=== PATIENT | female | born 1970 | race Caucasian/White ===

== ENCOUNTER 2022-12-12 16:39 | Emergency (ER) | payer BC, SELFPAY ==
[2022-12-12] VITALS (12 sets, daily range): BP systolic 122–161; BP diastolic 77–95; PULSE 55–85; RESP 18–20; TEMP 36.4–36.8; O2SAT 97–100; BMI 39.1
--- NOTE | 2022-12-12 17:00 | EXP.UTC ---
Discharge Plan Disposition Patient Disposition: Home, Self-Care Prescriptions Prescriptions: No Action No Known Home Medications Referrals Follow up/Referrals: Radha Gutierrez [Primary Care Provider] - See instructions Tameka Merritt DO [Staff Physician] - See instructions Germaine Wick MD [Staff Physician] - See instructions Clinical Impressions Clinical Impression: Back pain, Ovarian cyst Instructions Patient Instructions: DI for Ovarian Cyst Discharge ED Provider: Mario (ED),Ajay Kaur [facility] [place] <Star Cleveland APRN - Last Filed: 12/13/22 18:14> General Chief complaint: Abdominal Pain Stated complaint: back pain Time Seen by Provider: 12/12/22 17:00 Related Data Home Medications Medication Instructions Recorded Confirmed No Known Home Medications 12/13/22 12/13/22 Allergies Allergy/AdvReac Type Severity Reaction Status Date / Time No Known Allergies Allergy Verified 12/12/22 17:04 <Zac Saxena MD - Last Filed: 12/12/22 19:15> History of Present Illness Provider Complaint: 52-year-old female presents with right sided lower back pain she went to the urgent care center and was sent over to the emergency medicine side. For concern for appendicitis. She is mildly tender in the right lower back and the right flank area. [facility] <Star Cleveland APRN - Last Filed: 12/13/22 18:14> [facility] Disclaimer: The information contained in this section may have been updated after the patient was seen, as this information can be updated by other users. Social History (Updated 12/12/22 @ 23:46 by Ajay Martin (ED)MD) Smoking Status: Never smoker alcohol intake: never current occupational status: employed Travel in the last 8 weeks: None <Zac Saxena MD - Last Filed: 12/12/22 19:15> ROS Obtained: Yes All systems reviewed & no additional complaints except as documented Constitutional Constitutional: Denies fatigue Eyes Eyes: Denies dry eyes ENT Ears, Nose, Mouth, and Throat: Denies dizziness Cardiovascular Cardiovascular: Denies leg edema Respiratory Respiratory: Denies cough Gastrointestinal Gastrointestingal: Denies diarrhea Genitourinary Female Genitourinary: Denies dysuria Musculoskeletal Musculoskeletal: Denies back pain Integumentary/Breasts Skin/Breast: Denies furuncle Neurologic Neurologic: Denies dizziness Endocrine Endocrine: Denies fatigue Hematologic/Lymphatic Henatologic/Lymphatic: Denies easy bleeding Allergic/Immunologic Allergic/Immunologic: Denies urticaria <Zac Saxena MD - Last Filed: 12/12/22 19:15> General General appearance: alert Eye Eye exam: Present PERRL and EOMI ENT ENT exam: Present normal exam and normal oropharynx Neck Neck exam: Present normal inspection Chest Chest inspection: Present symmetric chest wall rise Respiratory Respiratory exam: Present normal lung sounds bilaterally; Absent respiratory distress Cardiovascular Cardiovascular exam: Present regular rate and normal rhythm Abdominal Exam Abdominal exam: Present soft; Absent distention, tenderness, guarding, rebound, Ferreira's sign or tenderness at McBurney's Point Back Exam Back exam: Present normal inspection and other (Mild tenderness right lower back) Neurological Exam Neurological exam: Present alert and oriented X3 Psychiatric Psychiatric exam: Present normal affect and normal mood Skin Skin exam: Present warm, dry and intact Lymphatic Lymphatic Findings: no adenopathy Medical Decision Making <Star Cleveland APRN - Last Filed: 12/13/22 18:14> Lab Data Result diagrams: 12/12/22 18:06 12/12/22 18:06 <Zac Saxena MD - Last Filed: 12/12/22 19:15> Medical Records Medical records reviewed: Yes I reviewed the patient's medical records. Cricket Inquiry Pt receiving controlled substance: No Cricket was queried for this patient: No Lab Data Lab results reviewed: Yes I reviewed the patient's lab results. Medical Decision Narrative: 52-year-ol
[2022-12-12 17:35] LABS: Apearance,Urine Clear (Clear); Color,Urine Yellow (Yellow); Glucose,Urine (UA) Negative (Negative); PH,Urine 5.5 (5.0-8.5); Protein,Urine Negative (Negative)
[2022-12-12 17:36] LABS: Bilirubin,Urine Negative (Negative); Blood, Urine Negative (Negative); Ketones,Urine Negative (Negative); UTC Leukocyte Esterase,Urine Negative (Negative); UTC Nitrate,Urine Negative (Negative); Urobilinogen,Urine 0.2 EU/dl (0.2)
--- NOTE | 2022-12-12 17:51 | CT_ITS ---
PROCEDURE INFORMATION: Exam: CT Abdomen And Pelvis With Contrast Exam date and time: 12/12/2022 7:08 PM Age: 52 years old Clinical indication: Abdominal pain; Localized; Right lower quadrant (rlq); Additional info: Rlq pain for 4 days. TECHNIQUE: Imaging protocol: Computed tomography of the abdomen and pelvis with contrast. Radiation optimization: All CT scans at this facility use at least one of these dose optimization techniques: automated exposure control; mA and/or kV adjustment per patient size (includes targeted exams where dose is matched to clinical indication); or iterative reconstruction. Contrast material: ISOVUE; Contrast volume: 75 ml; Contrast route: IV; REPORTING DATA: Count of CT and Cardiac NM exams in prior 12 months: This patient has received 0 known CTs and 0 known cardiac nuclear medicine studies in the 12 months prior to the current study. COMPARISON: No relevant prior studies available. FINDINGS: Heart: Cardiomegaly. Coronary arteries: Coronary artery calcifications. Liver: Normal. No mass. Gallbladder and bile ducts: Normal. No calcified stones. No ductal dilation. Pancreas: Normal. No ductal dilation. Spleen: Normal. No splenomegaly. Adrenal glands: Normal. No mass. Kidneys and ureters: Normal. No hydronephrosis. Stomach and bowel: Unremarkable. No obstruction. No mucosal thickening. Appendix: Unremarkable appendix. Intraperitoneal space: Unremarkable. No free air. No significant fluid collection. Vasculature: Unremarkable. No abdominal aortic aneurysm. Lymph nodes: Unremarkable. No enlarged lymph nodes. Urinary bladder: Unremarkable as visualized. Reproductive: There is a 4.4 x 4.2 cm right adnexal cystic structure that appears multilocular. Bones/joints: Unremarkable. No acute fracture. Soft tissues: Tiny fat containing umbilical hernia. IMPRESSION: 1. There is a 4.4 x 4.2 cm right adnexal cystic structure that appears multilocular. This could be an ovarian cyst or hydrosalpinx. 2. Unremarkable appendix.
[2022-12-12 18:38] LABS: Chloride 104 mmol/L (98-107); Potassium 4.2 mmoL/L (3.5-5.1); Sodium 136 mmol/L (136-145)
[2022-12-12 18:41] LABS: Alanine Aminotransferase 25 U/L (12-78); Albumin Level 3.8 g/dl (3.5-5.0); Albumin/Globulin Ratio 1.2 (1.1-1.8); Alkaline Phosphatase 75 U/L (38-126); Anion Gap 12.2 mEq/L (5-15); Aspartate Amino Transferase 36 U/L (14-36); Bilirubin,Total 0.3 mg/dl (0.2-1.3); Blood Urea Nitrogen 8 mg/dl (7-17); Calcium 8.9 mg/dl (8.4-10.2); Carbon Dioxide 24 mmol/L (22.0-30.0); Creatinine Clearance Estimated 241 mL/min (50-200); Estimated Glomerular Filt Rate 131 ml/min (>60); GFR (African American) 158 ML/MIN (>60); Globulin 3.1 g/dL (1.3-3.2); Glucose 109 mg/dl (74-100); Lipase 50 U/L (23-300); Total Protein,Serum 6.9 g/dl (6.3-8.2)
[2022-12-12 19:02] LABS: Basophils % 0.6 % (0.1-2.0); Eosinophils # 0.2 K/mm3 (0.0-0.4); Eosinophils % 3.8 % (0.1-12.0); Hematocrit 31.3 % (37.0-47.0); Hemoglobin 9.6 g/dL (12.2-16.2); Lymphocytes # 1.3 K/mm3 (0.7-4.5); Lymphocytes % 22.8 % (10-50); Mean Corpuscular HGB Conc 30.7 g/dL (31.8-35.4); Mean Corpuscular Hemoglobin 21.1 pg (27.0-31.2); Mean Corpuscular Volume 68.8 fl (81-99); Monocytes # 0.4 K/mm3 (0.1-1.0); Monocytes % 7.4 % (1.7-9.3); Neutrophils # 3.8 K/mm3 (1.8-7.8); Neutrophils % 65.4 % (37.0-80.0); Platelet Count 295 K/mm3 (142-424); Red Blood Count 4.55 M/mm3 (4.20-5.40); Red Cell Distribution Width 17.5 % (11.5-17.5); White Blood Count 5.8 K/mm3 (4.8-10.8)
--- NOTE | 2022-12-12 19:45 | PC.NURSE ---
Rounded on pt at this time. Pt had no new needs. Updated on POC
--- NOTE | 2022-12-12 22:09 | PC.NURSE ---
Rounded on pt at this time. Updated her on MD's POC and that he would be in shortly to review all results with her. Provided patient with warm blankets, no other needs at this time.
--- NOTE | 2022-12-12 22:17 | PC.NURSE ---
MD at bedside discussing POC
--- NOTE | 2022-12-12 22:27 | PC.NURSE ---
Notified lab of additional labs
--- NOTE | 2022-12-12 22:53 | US_ITS ---
PROCEDURE INFORMATION: Exam: US Duplex Artery or Vein of the Abdominal and/or Reproductive Organs, Limited Ovaries Exam date and time: 12/12/2022 11:05 PM Age: 52 years old Clinical indication: Pelvic pain; Additional info: Low abd pain, abd CT, R/O torsion TECHNIQUE: Imaging protocol: Real-time duplex ultrasound scan of the arterial or venous flow with swartz scale, color Doppler flow and spectral waveform analysis with image documentation. Limited duplex exam focused on the ovaries. Duplex exam was performed to evaluate for torsion and other vascular conditions. COMPARISON: CT ABDOMEN PELVIS W CON 12/12/2022 19:08 FINDINGS: Right ovary/adnexa: Unremarkable right ovarian arterial waveforms. Left ovary/adnexa: Unremarkable left ovarian arterial waveforms. IMPRESSION: No evidence of ovarian torsion. PROCEDURE INFORMATION: Exam: US Pelvis, Transvaginal Exam date and time: 12/12/2022 11:05 PM Age: 52 years old Clinical indication: Pelvic pain; Additional info: Low abd pain, abd CT, R/O torsion TECHNIQUE: Imaging protocol: Real-time transvaginal pelvic ultrasound with image documentation. Transvaginal imaging was used for better evaluation of the endometrium, adnexa, and/or cervix. COMPARISON: CT ABDOMEN PELVIS W CON 12/12/2022 19:08 FINDINGS: Uterus: Lower anterior uterine defect suggest possible prior Caesarian section. There is a tiny cystic focus in the endometrium. The endometrium measures 1.3 cm in thickness, which is within normal limits for a premenopausal woman. Right ovary/adnexa: Redemonstration of multilocular or septated cystic right adnexal lesion. Unremarkable right ovarian arterial waveforms. Left ovary/adnexa: Unremarkable left ovarian arterial waveforms. Intraperitoneal space: No free fluid. IMPRESSION: 1. Redemonstration of multilocular or septated cystic right adnexal lesion. Ovarian cyst versus hydrosalpinx would be most likely. No evidence of torsion. 2. There is a tiny cystic focus in the endometrium. Please exclude clinically. 3. The endometrium measures 1.3 cm in thickness, which is within normal limits for a premenopausal woman. This is abnormal for a postmenopausal patient. Consider follow-up with [facility] if the patient is postmenopausal.
[2022-12-12 23:03] LABS: C-Reactive Protein 13.4 mg/L (0-4)
[2022-12-12 23:11] LABS: Erythrocyte Sedimentation Rate 70 mm/hr (0-20)
[2022-12-12 23:17] LABS: Procalcitonin 0.055 ng/mL (0.0-2.0)
--- NOTE | 2022-12-12 23:37 | PC.NURSE ---
pt back from US
--- NOTE | 2022-12-12 23:53 | PC.NURSE ---
ER at bedside
== END 2022-12-13 | disposition home or self-care (01) ==
LOC: UTC 16:47 → ER 17:37
PROVIDERS: Emergency Medicine; Nurse Practitioner Family; Emergency Provider Emergency Medicine; PCP Internal Medicine
DX: N83.201 Unspecified ovarian cyst, right side (principal); M54.50 Low back pain, unspecified
CPT/HCPCS: 74177; 76830; 80053; 81003; 83690; 84145; 85025; 85651; 86140; 87086; 96361; 96374; 96375; 99284; J0131; J2405; Q9967

== ENCOUNTER → 2022-12-14 10:46 | Outpatient (CLI) | payer BC, SELFPAY ==
[2022-12-14 11:09] LABS: Basophils % 0.6 % (0.1-2.0); Eosinophils # 0.2 K/mm3 (0.0-0.4); Eosinophils % 3.3 % (0.1-12.0); Hematocrit 28.9 % (37.0-47.0); Hemoglobin 8.9 g/dL (12.2-16.2); Lymphocytes # 1.5 K/mm3 (0.7-4.5); Lymphocytes % 22.4 % (10-50); Mean Corpuscular HGB Conc 30.7 g/dL (31.8-35.4); Mean Corpuscular Volume 68.6 fl (81-99); Mean Platelet Volume 8.8 fl (7.4-10.4); Monocytes # 0.5 K/mm3 (0.1-1.0); Monocytes % 7.5 % (1.7-9.3); Neutrophils # 4.3 K/mm3 (1.8-7.8); Neutrophils % 66.2 % (37.0-80.0); Platelet Count 273 K/mm3 (142-424); Red Blood Count 4.21 M/mm3 (4.20-5.40); Red Cell Distribution Width 17.6 % (11.5-17.5); White Blood Count 6.6 K/mm3 (4.8-10.8)
[2022-12-14 11:41] LABS: Iron 26 ug/dL (37-170)
[2022-12-14 11:42] LABS: Alanine Aminotransferase 21 U/L (12-78); Albumin Level 3.6 g/dl (3.5-5.0); Albumin/Globulin Ratio 1.3 (1.1-1.8); Alkaline Phosphatase 80 U/L (38-126); Anion Gap 12.1 mEq/L (5-15); Aspartate Amino Transferase 24 U/L (14-36); Bilirubin,Total 0.2 mg/dl (0.2-1.3); Blood Urea Nitrogen 10 mg/dl (7-17); Calcium 8.7 mg/dl (8.4-10.2); Carbon Dioxide 26 mmol/L (22.0-30.0); Chloride 104 mmol/L (98-107); Estimated Glomerular Filt Rate 106 ml/min (>60); GFR (African American) 128 ML/MIN (>60); Globulin 2.8 g/dL (1.3-3.2); Glucose 110 mg/dl (74-100); Potassium 4.1 mmoL/L (3.5-5.1); Sodium 138 mmol/L (136-145); Total Protein,Serum 6.4 g/dl (6.3-8.2)
[2022-12-14 11:50] LABS: Total Iron Binding Capacity 422 ug/dL (265-497)
[2022-12-14 11:59] LABS: 25-OH Vitamin D, Total < 12.8 ng/mL (30-100)
[2022-12-14 12:15] LABS: Free Thyroxine Index 2.8 ug/dL (5.93-13.13); T4 (Thyroxine) 9.9 ug/dl (5.53-11.0); Triiodothryronine (T3) Uptake 28 % (23.5-40.5)
[2022-12-14 12:18] LABS: Ferritin 4.32 ng/ml (6.24-137)
[2022-12-14 13:33] LABS: Thyroid Stimulating Hormone 1.47 uIU/mL (0.465-4.68)
[2022-12-14 13:52] LABS: Vitamin B12 221 pg/mL (239-931)
== END ==
PROVIDERS: PCP Internal Medicine; Visit Provider Nurse Practitioner Obstetrics & Gynecology
DX: R53.83 Other fatigue (principal); D64.9 Anemia, unspecified; E55.9 Vitamin D deficiency, unspecified
CPT/HCPCS: 36415; 80053; 82306; 82607; 82728; 83540; 83550; 84436; 84443; 84479; 85025

== ENCOUNTER 2022-12-27 09:31 | Outpatient (CLI) | payer BC, SELFPAY ==
[2022-12-27 09:58] VITALS: BP 155/90; PULSE 81; RESP 18; TEMP 36.9; O2SAT 98
[2022-12-27 10:40] VITALS: BP 142/86; PULSE 79; RESP 18; O2SAT 98
== END 2022-12-27 10:40 | disposition home or self-care (01) ==
PROVIDERS: PCP Internal Medicine; Visit Provider Nurse Practitioner Obstetrics & Gynecology
DX: E61.1 Iron deficiency (principal)
CPT/HCPCS: 96365; J1439

== ENCOUNTER → 2023-01-04 09:42 | Outpatient (CLI) | payer BC, SELFPAY ==
--- NOTE | 2023-01-04 09:42 | MM_ITS ---
PROCEDURE INFORMATION: Exam: MG Bilateral Screening 3D Mammography Exam date and time: 01/04/2023 9:58 AM Age: 52 years old Clinical indication: Screening. No family history of breast cancer. TECHNIQUE: Imaging protocol: Bilateral Screening tomosynthesis and 2D mammography including computer-aided detection (CAD) when performed. COMPARISON: 1. MG MAMM SCREENING 2D 3D 12/23/2021 9:21 AM 2. MG MM SCREENING MAMMOGRAM 12/19/2018 3:42 PM 3. MG MM SCREENING MAMMOGRAM 03/09/2016 1:48 PM 4. MG MM SCREENING MAMMOGRAM 02/03/2015 10:33 AM FINDINGS: MAMMOGRAPHY: Breast composition: There are scattered areas of fibroglandular density. Mass: None. Architectural distortion: None. Calcifications: No suspicious calcifications. Asymmetric density: None. Skin thickening: None. Axillary adenopathy: None. IMPRESSION: No mammographic evidence of malignancy. Annual screening is recommended unless otherwise clinically indicated. ASSESSMENT: BI-RADS Category 1: Negative
== END ==
PROVIDERS: PCP Internal Medicine; Visit Provider Nurse Practitioner Obstetrics & Gynecology
DX: Z12.31 Encounter for screening mammogram for malignant neoplasm of breast (principal)
CPT/HCPCS: 77063; 77067

== ENCOUNTER 2023-01-04 10:32 | Outpatient (CLI) | payer BC, SELFPAY ==
[2023-01-04 11:00] VITALS: BP 119/70; PULSE 82; RESP 16; O2SAT 96
[2023-01-04 11:35] VITALS: BP 117/71; PULSE 73; RESP 16
== END 2023-01-04 11:50 | disposition home or self-care (01) ==
LOC: INF 10:32
PROVIDERS: PCP Internal Medicine; Visit Provider Nurse Practitioner Obstetrics & Gynecology
DX: E61.1 Iron deficiency (principal)
CPT/HCPCS: 96365; J1439

== ENCOUNTER → 2023-01-05 11:37 | Outpatient (CLI) | payer BC, SELFPAY ==
--- NOTE | 2023-01-05 11:38 | NM_ITS ---
APPROVED REPORT Exam: Nuclear Stress Test Indication: OBESITY, HTN, FM HX, ASD, SOB, ABN EKG Patient Location: Outpatient Stress Tech: Radha Fraser PR Tech:Carrie SaavedraJEANIE RT(R)(N) Ht: 5 ft 7 in Wt: 255 lbs Bra Size: G HR: 76 bpm BP: 133/87 mmHg BSA: 2.24 m2 Rhythm: NSR TID: 1.15 BMI: 39.9 History: OBESITY, HTN, FM HX, ASD, SOB, ABN EKG Procedure: Patient exercised on Maragrito protocol 5:36 minutes and sec, resting heart rate 76 bpm, resting blood pressure 133/87 mmHg, with exercise maximum heart rate achived was 147 bpm which is 86 % of the maximum predicted heart rate and blood pressure was 190/80 mmHg. Test was stopped due to FATIGUE. Patient has poor exercise capacity, achieved 7.0 METs of workload on treadmill, the blood pressure response to exercise was normal. Cardiac Stress and Resting SPECT Images: Cardiac Stress and Resting SPECT images were obtained using technetium 99m Myoview 32.1 mCi stress and 10.40 mCi at rest. This is a technically difficult study due to soft tissue overlying the cardiac borders. This may affect the diagnostic interpretation of the study findings. Resting and stress imaging in supine position demonstrat a medium-sized, moderate, fixed perfusion defect in the mid to distal anterior LV wall, as well as a medium-sized, moderate, reversible defect in the mid to distal inferior LV wall. Both of these defects are no longer visualized with prone stress imaging. Findings may be suggestive of possible artifact, but true perfusion defects cannot be entirely ruled out. Gated imaging demonstrates a normal global and regional LV systolic function. LVEF is calculated at 59%. Conclusion: This is a technically difficult study due to soft tissue overlying the cardiac borders. This may affect the diagnostic interpretation of the study findings. Resting and stress imaging in supine position demonstrat a large-sized, moderate, fixed perfusion defect in the basal to mid anterior LV wall, as well as a large-sized, moderate, reversible defect in the mid to distal inferior LV wall. Both of these defects are no longer visualized with prone stress imaging. Findings may be suggestive of possible soft tissue and diaphragmatic artifact, but true perfusion defects cannot be entirely ruled out. Gated imaging demonstrates a normal global and regional LV systolic function. LVEF is calculated at 59%. Electronically signed by : Odessa Cervantes, 01/08/2023 15:11:52
--- NOTE | 2023-01-05 11:38 | CA_ITS ---
APPROVED REPORT Exam: Exercise Treadmill Technologist: Radha Fraser, Ht: 5 ft 7 in Wt: 257 lbs BSA: 2.25 m2 HR: 76 bpm BP: 133/87 mmHg Rhythm: NSR, LOW VOLTAGE QRS Medical History Medical History: HTN Medications: Losartan,,,,, Allergies: No known drug allergies Cardiac Risk Factors: HTN Stress Test Details Test: Maryam HR Resting HR: 85 bpm Max Heart Rate (APMHR): 170 bpm Max HR Achieved: 147 bpm Target HR (85% APMHR): 145 bpm % of APMHR: 86 Recovery HR: 87 bpm HR response to stress: Normal HR response to stress BP Resting BP: 133.0/87 mmHg Max BP: 190/80 mmHg Recovery BP: 150.0/78.0 mmHg BP response to stress: Normal blood pressure response to stress ECG Resting ECG: NSR, LOW VOLTAGE QRS Stress ECG: <[address] depression in lateral leads Arrhythmia: PACs, PVCs Recovery ECG: Return to baseline within 3 minutes of recovery Recovery Arrhythmia: PACs, PVCs Clinical Exercise duration: 05:36 min Highest Stage Achieved: Exercise capacity: 7.0 METs Overall Exercise Capacity for Age: Poor Stress ECG Conclusion PT WALKED 5:36 ON MARYAM PROTOCOL. SHE ACHIEVED A TOTAL OF 7 METS. SHE HAS A POOR EXERCISE CAPACITY COMPARED TO AGE AND SEX MATCHED PEERS. SHE HAS A NORMAL HR AND BP RESPONSE TO EXERCISE. MAX HR: 147 % OF PM: 86% MAX BP: 190/80 METS: 7.0 TEST STOPPED DUE TO: SOA NO CP PT HAD DYSPNEA OCC PAC RARE PVC < [address] DEPRESSION IN LATERAL LEADS CONCLUSION: POOR EXERCISE CAPACITY POSSIBLE ISCHEMIA ON ECG STRESS TEST MYOVIEW IMAGES REPORTED SEPARATELY Test Summary REST . . . . . . . Standing REST . . . . . . . Sitting REST 04:18 0.0 0.0 85 . 133/ 87 . . Stage 1 01:00 10.0 1.7 110 . . . . Stage 1 02:00 10.0 1.7 119 . . . . Stage 1 03:00 10.0 1.7 123 . 190/ 80 . . Stage 2 01:00 12.0 2.5 135 . . . . Stage 2 02:00 12.0 2.5 142 . . . . Stage 2 02:36 12.0 2.5 146 . . . Stop exercise at 05:36 RECOVERY 01:00 0.0 0.0 125 . . . . RECOVERY 02:00 0.0 0.0 93 . . . . RECOVERY 03:00 0.0 0.0 82 . 160/ 79 . . RECOVERY 04:00 0.0 0.0 91 . 170/ 78 . . RECOVERY 05:00 0.0 0.0 79 . 170/ 78 . . RECOVERY 06:00 0.0 0.0 92 . 161/ 63 . . RECOVERY 07:00 0.0 0.0 87 . 150/ 78 . . RECOVERY 07:16 0.0 0.0 93 . 150/ 78 . . Electronically signed by : Odessa Cervantes, 01/06/2023 14:27:11
== END ==
LOC: RAD 11:38
PROVIDERS: PCP Internal Medicine; Visit Provider Nurse Practitioner Family
DX: R06.00 Dyspnea, unspecified (principal); I25.10 Atherosclerotic heart disease of native coronary artery without angina pectoris; I25.84 Coronary atherosclerosis due to calcified coronary lesion; I51.7 Cardiomegaly; R94.31 Abnormal electrocardiogram [ECG] [EKG]; Z87.74 Personal history of (corrected) congenital malformations of heart and circulatory system
CPT/HCPCS: 78452; 93017; 93306; A9502

== ENCOUNTER → 2023-01-18 11:48 | Outpatient (CLI) | payer BC, SELFPAY ==
--- NOTE | 2023-01-18 11:48 | US_ITS ---
PROCEDURE: US TRANSVAGINAL CLINICAL INDICATION: abnormal bleeding COMPARISON: No exams were available for comparison FINDINGS: Transvaginal sonographic images of the pelvis were obtained. UTERUS: 9.9 cm x 6.0 cm x 4.9 cm with a combined endometrial thickness of 7.1mm. The endometrium has an irregular appearance possibly consistent with adenomyosis. LEFT OVARY: 2.8 cmx2.3 cmx1.6cm with a volume of 5.6ml. There is a follicle measuring 1.0 cm x 0.8 cm x 0.7 cm. RIGHT OVARY: 3.3 cmx 3.1 cmx2.3 cm with a volume of 12.2ml. Within the right ovary is a dominant follicle measuring 1.6 cm x 2.0 cm x 2.0 cm. Both ovaries are seen and appear normal. Doppler flow to both ovaries are seen. There is no fluid in the cul-de-sac. IMPRESSION: 1. Bulky anteverted uterus. 2. The endometrium measures 7.1 mm but has an irregular appearance possibly consistent with adenomyosis. 3. Both ovaries appear normal and each has a follicle. 4. No fluid in the cul-de-sac. Dictated by: David Mejia MD 01/18/2023 13:54 David Mejia MD in OV 01/18/2023 13:54
== END ==
PROVIDERS: PCP Internal Medicine; Visit Provider Nurse Practitioner Obstetrics & Gynecology
DX: N93.9 Abnormal uterine and vaginal bleeding, unspecified (principal)
CPT/HCPCS: 76830

== ENCOUNTER → 2023-01-27 12:12 | Outpatient (CLI) | payer BC, SELFPAY ==
[2023-01-27 12:55] LABS: Basophils % 0.4 % (0.1-2.0); Eosinophils # 0.2 K/mm3 (0.0-0.4); Eosinophils % 2.6 % (0.1-12.0); Hematocrit 38.6 % (37.0-47.0); Hemoglobin 12.3 g/dL (12.2-16.2); Lymphocytes # 1.7 K/mm3 (0.7-4.5); Lymphocytes % 19.3 % (10-50); Mean Corpuscular HGB Conc 31.8 g/dL (31.8-35.4); Mean Corpuscular Hemoglobin 25.2 pg (27.0-31.2); Mean Corpuscular Volume 79.3 fl (81-99); Mean Platelet Volume 7.8 fl (7.4-10.4); Monocytes # 0.6 K/mm3 (0.1-1.0); Monocytes % 6.8 % (1.7-9.3); Neutrophils # 6.3 K/mm3 (1.8-7.8); Neutrophils % 70.9 % (37.0-80.0); Platelet Count 256 K/mm3 (142-424); Red Blood Count 4.87 M/mm3 (4.20-5.40); Red Cell Distribution Width 24.2 % (11.5-17.5); White Blood Count 8.9 K/mm3 (4.8-10.8)
[2023-01-27 13:41] LABS: Iron 49 ug/dL (37-170)
[2023-01-27 13:56] LABS: Total Iron Binding Capacity 301 ug/dL (265-497)
[2023-01-27 14:16] LABS: Ferritin 70.3 ng/ml (6.24-137)
[2023-01-27 15:21] LABS: Vitamin B12 756 pg/mL (239-931)
== END ==
PROVIDERS: PCP Internal Medicine; Visit Provider Internal Medicine Medical Oncology
DX: D50.9 Iron deficiency anemia, unspecified (principal)
CPT/HCPCS: 36415; 82607; 82728; 83540; 83550; 85025

== ENCOUNTER 2023-02-01 07:37 | Day surgery (SDC) | payer BC, SELFPAY ==
[2023-02-01] VITALS (11 sets, daily range): BP systolic 117–158; BP diastolic 63–83; PULSE 55–73; RESP 16; O2SAT 94–99; BMI 39.7
--- NOTE | 2023-02-01 07:13 | IR_ITS ---
APPROVED REPORT Patient Location: Outpatient Prototype Technician: JEANIE Melendze RT (R) PROCEDURES Left heart catheterization Left ventriculogram Selective coronary angiogram INDICATION Abnormal Myoview, Angina pectoris Informed consent was obtained prior to the procedure. COMPLICATIONS NONE Estimated Blood Loss: LESS THAN 10 ML TECHNIQUE One percent lidocaine used to anesthetize the right anterior aspect of the wrist. The right radial artery was accessed via the Seldinger technique. A 6 [place] sheath was placed in the right radial artery. 2.5 mg of Verapamil, 800 mcg of nitroglycerin, 1mg Lidocaine and 5000 U Heparin were given through the arterial sheath. The papa catheter was also used to perform left heart catheterization, left ventriculogram and selective coronary angiogram. At the end of the procedure the sheath was removed good hemostasis was achieved using Traclet band, patient was transferred to the postop holding area in stable condition. ANGIOGRAPHIC RESULTS The left main artery Normal The left anterior descending artery Is diffuse 10 to 20% stenoses The circumflex artery Nondominant has diffuse 20 to 30% stenoses The right coronary artery Dominant with diffuse 30 to 40% stenoses The HAYS ventriculogram reveals Preserved at 65% The left ventricular end-diastolic pressure 20 mmHg IMPRESSION Mild to moderate coronary disease as described above Preserved ejection fraction Mildly elevated LVEDP PLAN 1. Risk factor modification 2. Treatment of diastolic dysfunction Electronically signed by : Chris Kahn MD 02/02/2023 13:18:10
[2023-02-01 09:39] LABS: Basophils % 0.5 % (0.1-2.0); Chloride 104 mmol/L (98-107); Eosinophils # 0.3 K/mm3 (0.0-0.4); Eosinophils % 3.2 % (0.1-12.0); Hemoglobin 12.1 g/dL (12.2-16.2); Lymphocytes # 1.7 K/mm3 (0.7-4.5); Lymphocytes % 20.4 % (10-50); Mean Corpuscular HGB Conc 31.9 g/dL (31.8-35.4); Mean Corpuscular Hemoglobin 25.7 pg (27.0-31.2); Mean Corpuscular Volume 80.8 fl (81-99); Mean Platelet Volume 7.8 fl (7.4-10.4); Monocytes # 0.6 K/mm3 (0.1-1.0); Monocytes % 6.9 % (1.7-9.3); Neutrophils # 5.7 K/mm3 (1.8-7.8); Neutrophils % 69.1 % (37.0-80.0); Platelet Count 229 K/mm3 (142-424); Potassium 3.6 mmoL/L (3.5-5.1); Red Cell Distribution Width 24.1 % (11.5-17.5); Sodium 137 mmol/L (136-145); White Blood Count 8.3 K/mm3 (4.8-10.8)
[2023-02-01 09:42] LABS: Anion Gap 12.6 mEq/L (5-15); Blood Urea Nitrogen 12 mg/dl (7-17); Calcium 10.9 mg/dl (8.4-10.2); Carbon Dioxide 24 mmol/L (22.0-30.0); Creatinine Clearance Estimated 204 mL/min (50-200); Estimated Glomerular Filt Rate 106 ml/min (>60); GFR (African American) 128 ML/MIN (>60); Glucose 102 mg/dl (74-100)
== END 2023-02-01 13:26 | disposition home or self-care (01) ==
PROVIDERS: PCP Internal Medicine; Visit Provider Internal Medicine
DX: I25.118 Atherosclerotic heart disease of native coronary artery with other forms of angina pectoris (principal); I25.84 Coronary atherosclerosis due to calcified coronary lesion; I51.7 Cardiomegaly; R94.31 Abnormal electrocardiogram [ECG] [EKG]; R94.39 Abnormal result of other cardiovascular function study; Z87.74 Personal history of (corrected) congenital malformations of heart and circulatory system
CPT/HCPCS: 80048; 85025; 93458; 99152; C1725; C1769; J1644; Q9967

== ENCOUNTER → 2023-02-07 09:06 | Outpatient (CLI) | payer BC, SELFPAY ==
--- NOTE | 2023-02-07 09:10 | US_ITS ---
FINAL REPORT CLINICAL HISTORY: epigastric pain COMPARISON: None FINDINGS: Sonographic images of the right upper quadrant were obtained. The pancreas is partially obscured. There is fatty infiltration of the liver. Sludge is noted in the gallbladder. There is a comet tail artifact in the gallbladder which may be related to adenomyomatosis. There is no evidence of biliary ductal dilatation.The common duct measures 3 mm. Limited images of the right kidney are unremarkable. IMPRESSION: Small amount of sludge and adenomyomatosis of the gallbladder wall. Reviewed, Interpreted and Dictated by Clay Gupta MD Transcribed by Sirena Esparza Authenticated and [facility][1]
== END ==
PROVIDERS: PCP Internal Medicine; Visit Provider Nurse Practitioner
DX: R10.13 Epigastric pain (principal)
CPT/HCPCS: 76705

== ENCOUNTER → 2023-02-16 14:35 | Outpatient (CLI) | payer BC, SELFPAY ==
[2023-02-16 16:20] LABS: Chloride 101 mmol/L (98-107); Potassium 4.2 mmoL/L (3.5-5.1); Sodium 138 mmol/L (136-145)
[2023-02-16 16:23] LABS: Blood Urea Nitrogen 15 mg/dl (7-17); Estimated Glomerular Filt Rate 76 ml/min (>60); GFR (African American) 92 ML/MIN (>60)
[2023-02-16 16:24] LABS: Anion Gap 11.2 mEq/L (5-15); Calcium 10.5 mg/dl (8.4-10.2); Carbon Dioxide 30 mmol/L (22.0-30.0); Glucose 123 mg/dl (74-100)
--- NOTE | 2023-02-27 13:55 | PC.NURSE ---
Have left messages about a HST but no return calls.
== END ==
PROVIDERS: PCP Internal Medicine; Visit Provider Nurse Practitioner Family
DX: R06.00 Dyspnea, unspecified (principal); I25.10 Atherosclerotic heart disease of native coronary artery without angina pectoris; I50.30 Unspecified diastolic (congestive) heart failure; I51.7 Cardiomegaly
CPT/HCPCS: 36415; 80048

== ENCOUNTER 2023-02-23 14:36 | Outpatient (CLI) | payer BC, SELFPAY ==
[2023-02-23 14:46] VITALS: BP 127/75; PULSE 71; RESP 18; TEMP 36.7; O2SAT 98
== END 2023-02-23 15:05 | disposition home or self-care (01) ==
LOC: INF 14:37
PROVIDERS: Visit Provider Internal Medicine Medical Oncology
DX: D50.9 Iron deficiency anemia, unspecified (principal)
CPT/HCPCS: 96372

== ENCOUNTER → 2023-03-02 13:06 | Outpatient (CLI) | payer BC, SELFPAY ==
[2023-03-02 13:56] VITALS: BMI 40.8
== END ==
PROVIDERS: PCP Internal Medicine; Visit Provider Nurse Practitioner
DX: K76.0 Fatty (change of) liver, not elsewhere classified (principal)
CPT/HCPCS: 97802

== ENCOUNTER 2023-03-20 11:14 | Outpatient (CLI) | payer BC, SELFPAY ==
[2023-03-20 11:28] VITALS: BP 145/78; PULSE 72; RESP 16; TEMP 36.8; O2SAT 98
== END 2023-03-20 11:35 | disposition home or self-care (01) ==
LOC: INF 11:16
PROVIDERS: PCP Internal Medicine; Visit Provider Internal Medicine Medical Oncology
DX: D50.8 Other iron deficiency anemias (principal); E53.8 Deficiency of other specified B group vitamins
CPT/HCPCS: 96372

== ENCOUNTER → 2023-04-07 08:12 | Outpatient (CLI) | payer BC, SELFPAY | PROVIDERS: PCP Internal Medicine; Visit Provider Nurse Practitioner Family | DX: R06.00 Dyspnea, unspecified (principal); R40.0 Somnolence; R53.83 Other fatigue; I25.10 Atherosclerotic heart disease of native coronary artery without angina pectoris; I50.30 Unspecified diastolic (congestive) heart failure; I51.7 Cardiomegaly; G47.30 Sleep apnea, unspecified | CPT/HCPCS: G0399 ==

== ENCOUNTER 2023-04-17 11:49 | Outpatient (CLI) | payer BC, SELFPAY ==
[2023-04-17 12:00] VITALS: BP 129/68; PULSE 74; RESP 18; TEMP 36.7; O2SAT 97
== END 2023-04-17 12:14 | disposition home or self-care (01) ==
LOC: INF 11:50
PROVIDERS: PCP Nurse Practitioner Obstetrics & Gynecology; Visit Provider Internal Medicine Medical Oncology
DX: E53.8 Deficiency of other specified B group vitamins (principal)
CPT/HCPCS: 96372

== ENCOUNTER → 2023-04-19 09:36 | Outpatient (CLI) | payer BC, SELFPAY ==
[2023-04-19 11:04] LABS: Anion Gap 11.1 mEq/L (5-15); Blood Urea Nitrogen 8 mg/dl (7-17); Calcium 10.2 mg/dl (8.4-10.2); Carbon Dioxide 26 mmol/L (22.0-30.0); Chloride 104 mmol/L (98-107); Estimated Glomerular Filt Rate 89 ml/min (>60); GFR (African American) 107 ML/MIN (>60); Glucose 110 mg/dl (74-100); Potassium 4.1 mmoL/L (3.5-5.1); Sodium 137 mmol/L (136-145)
== END ==
PROVIDERS: PCP Internal Medicine; Visit Provider Nurse Practitioner
DX: I50.30 Unspecified diastolic (congestive) heart failure (principal)
CPT/HCPCS: 36415; 80048

== ENCOUNTER 2023-05-25 11:26 | Day surgery (SDC) | payer BC, SELFPAY ==
[2023-04-21 13:16] VITALS: BMI 40.7
[2023-05-25 11:41] VITALS: BP 127/77; PULSE 69; RESP 18; TEMP 36.3; O2SAT 96
--- NOTE | 2023-05-25 11:57 | P.PNANES_ITS ---
[facility] Disclaimer: The information contained in this section may have been updated after the patient was seen, as this information can be updated by other users. Medical History Abnormal electrocardiogram [ECG] [EKG] ASD (atrial septal defect) Cardiomegaly Coronary artery calcification Coronary artery calcification seen on CAT scan Coronary artery disease Diastolic heart failure Dyspnea Fatigue High blood pressure Hyperlipidemia Surgical History H/O congenital atrial septal defect (ASD) repair H/O heart surgery History of ankle surgery History of delivery x2 Family History Mother Cancer uterine Father Cancer prostate, stomach Diabetes Social History Smoking Status: Never smoker alcohol intake: never substance use type: denies use current occupational status: employed Travel in the last 8 weeks: None [facility] Anesthesia Checklist Structural Data Admitted From: Home Planned Operative Procedure/s: egd Consent for Planned Operative Procedure(s) Verified: Yes NPO Status Verified Time NPO: 00:00 Airway Assessment Mallampati Score:: Class II C-Spine Mobility Assessed: Yes TMJ Mobility Assessed: Yes Dentition: Good Dentition Neurological Assessment Level of Consciousness: Awake, Alert and Appropriate Anesthesia Plan Anesthesia Risk discussed: Yes Anesthesia Plan: Verified ASA Class: II Anesthesia Type: MAC
[2023-05-25 12:14] LABS: HCG Qualitative, Serum Negative (Negative)
--- NOTE | 2023-05-25 12:29 | HMH.SCOPE ---
Procedure: Date: 05/25/23 Patient Date of :: 1970 Procedure Performed:: EGD & biopsies Indications:: Abdominal pain Performing Provider:: Mario Alberto Foley MD Referring Provider:: Saundra Foley APRN Sedation:: Propofol Procedure:: The gastroscope was gently passed through the incisoral orifice into the oral cavity and under direct visualization the esophagus was intubated. The endoscope was passed down the esophagus, through the stomach, and into the duodenum. Color, texture, mucosa, and anatomy of the esophagus, stomach, and duodenum were carefully examined with the scope. Findings:: Oropharynx: normal Esophagus: normal EG Junction: intact at 40 cm Cardia: normal Fundus: normal Body: normal, random biopsies obtained Antrum: normal Duodenal bulb: normal Duodenum (second and third portion): normal, villi clearly visible, biopsies obtained Impression: Normal EGD, biopsies obtained for evaluation of celiac disease and h.pylori Symptoms suggestive of abdominal migraine/IBS Specimens:: Gastric and small bowel Recommendations:: Symptomatic therapy as indicated by referring provider Complications:: None Estimated blood obtained (mL): 0 Colonoscopy Component Colonoscopy Component Was a colonoscopy performed during today's procedure?: No
[2023-05-25 12:30] VITALS: BP 138/83; PULSE 90; RESP 18; TEMP 36.2; O2SAT 99
[2023-05-25 12:40] VITALS: BP 133/83; PULSE 75; RESP 18; O2SAT 95
[2023-05-25 12:50] VITALS: BP 121/61; PULSE 71; RESP 18; O2SAT 96
[2023-05-25 13:12] VITALS: BP 118/60; PULSE 69; RESP 18; O2SAT 96
== END 2023-05-25 13:19 | disposition home or self-care (01) ==
PROVIDERS: PCP Internal Medicine; Visit Provider Internal Medicine Gastroenterology
PROC: 0DJ08ZZ Inspection of Upper Intestinal Tract, Via Natural or Artificial Opening Endoscopic (ICD-10-PCS; CPT 43235; principal; 2023-05-25 12:00)
DX: K29.50 Unspecified chronic gastritis without bleeding (principal); B96.81 Helicobacter pylori [H. pylori] as the cause of diseases classified elsewhere
CPT/HCPCS: 43239; 84703

== ENCOUNTER → 2023-06-01 14:15 | Outpatient (CLI) | payer BC, SELFPAY ==
[2023-06-01 15:06] LABS: Basophils % 0.5 % (0.1-2.0); Eosinophils # 0.2 K/mm3 (0.0-0.4); Eosinophils % 2.9 % (0.1-12.0); Hematocrit 39.2 % (37.0-47.0); Hemoglobin 13.2 g/dL (12.2-16.2); Lymphocytes # 1.7 K/mm3 (0.7-4.5); Lymphocytes % 20.9 % (10-50); Mean Corpuscular HGB Conc 33.5 g/dL (31.8-35.4); Mean Corpuscular Hemoglobin 30.2 pg (27.0-31.2); Mean Platelet Volume 8.6 fl (7.4-10.4); Monocytes # 0.5 K/mm3 (0.1-1.0); Monocytes % 6.9 % (1.7-9.3); Neutrophils # 5.4 K/mm3 (1.8-7.8); Neutrophils % 68.9 % (37.0-80.0); Platelet Count 204 K/mm3 (142-424); Red Blood Count 4.36 M/mm3 (4.20-5.40); Red Cell Distribution Width 14.5 % (11.5-17.5); White Blood Count 7.9 K/mm3 (4.8-10.8)
[2023-06-01 15:30] LABS: Iron 55 ug/dL (37-170)
[2023-06-01 15:55] LABS: Total Iron Binding Capacity 375 ug/dL (265-497)
[2023-06-01 16:16] LABS: Ferritin 18.1 ng/ml (6.24-137)
[2023-06-01 17:46] LABS: Vitamin B12 506 pg/mL (239-931)
[2023-06-01 17:50] LABS: Folate 7.97 ng/mL
== END ==
PROVIDERS: PCP Internal Medicine; Visit Provider Internal Medicine Medical Oncology
DX: D50.9 Iron deficiency anemia, unspecified (principal)
CPT/HCPCS: 36415; 82607; 82728; 82746; 83540; 83550; 85025

== ENCOUNTER 2023-06-08 12:00 | Day surgery (SDC) | payer BC, SELFPAY ==
[2023-06-08] VITALS (7 sets, daily range): BP systolic 109–139; BP diastolic 58–92; PULSE 60–84; RESP 16–18; TEMP 36.1–36.2; O2SAT 95–100; BMI 40.7
[2023-06-08] MEDS: LACTATED RINGERS 1000ML 1,000 ML 100 ML IV (12:12)
--- NOTE | 2023-06-08 12:36 | EXP.ANES.CKL ---
[facility] Disclaimer: The information contained in this section may have been updated after the patient was seen, as this information can be updated by other users. Medical History Abnormal electrocardiogram [ECG] [EKG] ASD (atrial septal defect) Cardiomegaly Coronary artery calcification Coronary artery calcification seen on CAT scan Coronary artery disease Diastolic heart failure Dyspnea Fatigue High blood pressure Hyperlipidemia Surgical History H/O congenital atrial septal defect (ASD) repair H/O heart surgery History of ankle surgery History of delivery x2 Family History Mother Cancer uterine Father Cancer prostate, stomach Diabetes Social History Smoking Status: Never smoker alcohol intake: never substance use type: denies use current occupational status: employed Travel in the last 8 weeks: None caffeine: Yes [facility] Anesthesia Checklist Patient Identification Patient Identification: Arm Band, Family and Verbal (Name & ) Structural Data Admitted From: Home Planned Operative Procedure/s: Colonoscopy Consent for Planned Operative Procedure(s) Verified: Yes Verified Documents: Surgical Consent and History and Physical NPO Status Verified Time NPO: 08:00 Chart Verification Results Verified: CBC, BMP, ECG and HCG Additional verifications Patient : No Anesthesia Reactions: Yes (PONV) Cardiovascular Assessment Heart Sounds: S1 & S2 Pulse Rhythm: Irregular Peripheral Edema: No Airway Assessment Mallampati Score:: Class II C-Spine Mobility Assessed: Yes (FROM) TMJ Mobility Assessed: Yes Dentition: Good Dentition (Nothing loose per pt.) Neurological Assessment Level of Consciousness: Awake, Alert, Appropriate and Follows Commands Hx Seizures: No Numbness or tingling in extremities: No Anesthesia Plan Anesthesia Risk discussed: Yes Anesthesia Plan: Verified ASA Class: III Anesthesia Type: MAC
[2023-06-08 12:41] LABS: HCG Qualitative, Serum Negative (Negative)
--- NOTE | 2023-06-08 13:09 | HMH.SCOPE ---
Procedure: Date: 06/08/23 Patient Date of :: 1970 Procedure Performed:: Colonoscopy with polypectomy Indications:: Chronic Anemia Performing Provider:: Mario Alberto Foley MD Referring Provider:: Ajay Lindo MD Sedation:: Propofol Procedure:: After placing the patient in the left lateral decubitus position, the colonoscopy was gently inserted into the rectum and under direct visualization advanced to the cecum which was identified by transillumination in the right lower quadrant, identification of the ileocecal valve, appendiceal orifice, and cecal strap. Color, texture, mucosa, and anatomy of the colon were carefully examined with the scope. Findings:: Anal canal: normal Rectum: normal Sigmoid colon: normal without polyps or inflammatory changes Descending colon: 075 hyperplastic type polyp identified and removed with cold snare. Splenic flexure: normal Transverse colon: normal without polyps or inflammatory changes Hepatic flexure: normal Ascending colon: normal without polyps or inflammatory changes Cecum: normal Terminal ileum: not visualized Impression: Benign Polyp, descending colon Specimens:: Polyp Recommendations:: Follow up examination in about FIVE years or so, sooner if clinically indicated. Complications:: None Estimated blood obtained (mL): 0 Colonoscopy Component Colonoscopy Component Was a colonoscopy performed during today's procedure?: Yes Recommended follow up colonoscopy of at least 10 years?: No If no, follow up colonoscopy recommended in ___ years?: Five Reason for not recommending >/= 10 yr follow-up interval?: Polyp
--- NOTE | 2023-06-08 13:19 | EXP.ANES.I ---
[facility] Anesthesia Record Part I Anesthesia Record I Intake, IV Amount: 400 Hydration: Adequate Estimated blood loss (mL): 1 Urine output (mL): 0 Blood Products used (#): none Blood Pressure: 109/65 SaO2: 96 Pulse Rate: 76 Airway Patency: Patent Respiratory Rate: 16 Temperature: 97.1 F Patient is:: Awake, Drowsy and Stable Stable to PACU at:: 13:15
== END 2023-06-08 13:45 | disposition home or self-care (01) ==
PROVIDERS: PCP Internal Medicine; Visit Provider Internal Medicine Gastroenterology
PROC: 0DJD8ZZ Inspection of Lower Intestinal Tract, Via Natural or Artificial Opening Endoscopic (ICD-10-PCS; CPT 45378; principal; 2023-06-08 13:00)
DX: D64.9 Anemia, unspecified (principal); K63.5 Polyp of colon
CPT/HCPCS: 45385; 84703; J2704

== ENCOUNTER 2023-08-28 10:14 | Outpatient (CLI) | payer BC, SELFPAY ==
[2023-08-30 08:56] LABS: H. pylori Breath Test Negative (Negative)
== END 2023-08-28 23:59 ==
LOC: LAB 10:14
PROVIDERS: PCP Internal Medicine; Visit Provider Nurse Practitioner
DX: A04.8 Other specified bacterial intestinal infections (principal)
CPT/HCPCS: 83013

== ENCOUNTER 2023-09-13 13:44 | Outpatient (CLI) | payer BC, SELFPAY ==
[2023-09-13 14:05] LABS: Basophils # 0.1 K/mm3 (0-0.2); Basophils % 0.7 % (0.1-2.0); Eosinophils # 0.3 K/mm3 (0.0-0.4); Eosinophils % 3.5 % (0.1-12.0); Hematocrit 37.1 % (37.0-47.0); Hemoglobin 11.9 g/dL (12.2-16.2); Lymphocytes # 1.9 K/mm3 (0.7-4.5); Lymphocytes % 23.6 % (10-50); Mean Corpuscular Hemoglobin 28.2 pg (27.0-31.2); Mean Corpuscular Volume 87.9 fl (81-99); Mean Platelet Volume 8.7 fl (7.4-10.4); Monocytes # 0.5 K/mm3 (0.1-1.0); Monocytes % 6.5 % (1.7-9.3); Neutrophils # 5.3 K/mm3 (1.8-7.8); Neutrophils % 65.7 % (37.0-80.0); Platelet Count 252 K/mm3 (142-424); Red Blood Count 4.22 M/mm3 (4.20-5.40); Red Cell Distribution Width 14.5 % (11.5-17.5); White Blood Count 8.1 K/mm3 (4.8-10.8)
[2023-09-13 15:08] LABS: Iron 55 ug/dL (37-170)
[2023-09-13 15:17] LABS: Total Iron Binding Capacity 381 ug/dL (265-497)
== END 2023-09-13 23:59 ==
LOC: LAB 13:45
PROVIDERS: PCP Internal Medicine; Visit Provider Internal Medicine Medical Oncology
DX: D50.9 Iron deficiency anemia, unspecified (principal)
CPT/HCPCS: 36415; 82728; 83540; 83550; 85025

== ENCOUNTER 2023-09-28 09:32 | Outpatient (CLI) | payer BC, SELFPAY ==
[2023-09-28 09:55] VITALS: BP 143/69; PULSE 75; O2SAT 100
[2023-09-28] MEDS: IRON SUCROSE COMPLEX 200 MG in 0.9 % SODIUM CHLORIDE 100 ML 220 MG IV (10:00)
[2023-09-28] MEDS: SODIUM CHLORIDE 0.9% 50ML BAG 50 ML IV (10:00)
[2023-09-28] MEDS: SODIUM CHLORIDE 0.9% 10ML FLUSH SYRINGE 10 ML IV (10:00)
[2023-09-28 10:30] VITALS: BP 133/70; PULSE 68
== END 2023-09-28 10:35 | disposition home or self-care (01) ==
LOC: INF 09:32
PROVIDERS: PCP Internal Medicine; Visit Provider Internal Medicine Medical Oncology
DX: D50.9 Iron deficiency anemia, unspecified (principal)
CPT/HCPCS: 96365; J1756

== ENCOUNTER 2023-10-06 08:09 | Outpatient (CLI) | payer BC, SELFPAY ==
[2023-10-06] MEDS: IRON SUCROSE COMPLEX 200 MG in 0.9 % SODIUM CHLORIDE 100 ML 220 MG IV (08:35)
[2023-10-06] MEDS: SODIUM CHLORIDE 0.9% 50ML BAG 50 ML IV (08:35)
[2023-10-06] MEDS: SODIUM CHLORIDE 0.9% 10ML FLUSH SYRINGE 10 ML IV (08:35)
[2023-10-06 08:38] VITALS: BP 120/63; PULSE 72; RESP 17; O2SAT 97
[2023-10-06 09:10] VITALS: BP 125/61; PULSE 69; RESP 16
== END 2023-10-06 09:30 | disposition home or self-care (01) ==
LOC: INF 08:10
PROVIDERS: PCP Internal Medicine; Visit Provider Internal Medicine Medical Oncology
DX: D50.9 Iron deficiency anemia, unspecified (principal)
CPT/HCPCS: 96365; J1756

== ENCOUNTER 2023-10-12 10:51 | Outpatient (CLI) | payer BC, SELFPAY ==
[2023-10-12 11:10] VITALS: BP 114/65; PULSE 65; RESP 18; TEMP 36.6; O2SAT 99
[2023-10-12] MEDS: IRON SUCROSE COMPLEX 200 MG in 0.9 % SODIUM CHLORIDE 100 ML 220 MG IV (11:10)
[2023-10-12] MEDS: SODIUM CHLORIDE 0.9% 50ML BAG 50 ML IV (11:10)
[2023-10-12 11:50] VITALS: BP 126/71; PULSE 71; RESP 18; O2SAT 99
== END 2023-10-12 11:50 | disposition home or self-care (01) ==
LOC: INF 10:51
PROVIDERS: PCP Internal Medicine; Visit Provider Internal Medicine Medical Oncology
DX: R06.02 Shortness of breath; E61.1 Iron deficiency
CPT/HCPCS: 96365; J1756

== ENCOUNTER 2023-10-20 08:27 | Outpatient (CLI) | payer BC, SELFPAY ==
[2023-10-20] MEDS: SODIUM CHLORIDE 0.9% 50ML BAG 50 ML IV (08:48)
[2023-10-20] MEDS: SODIUM CHLORIDE 0.9% 10ML FLUSH SYRINGE 10 ML IV (08:48)
[2023-10-20 08:49] VITALS: BP 123/73; PULSE 84; RESP 16; TEMP 36.6; O2SAT 98
[2023-10-20] MEDS: IRON SUCROSE COMPLEX 200 MG in 0.9 % SODIUM CHLORIDE 100 ML 220 MG IV (08:49)
[2023-10-20 09:26] VITALS: BP 135/82; PULSE 79; RESP 16; TEMP 36.6; O2SAT 98
== END 2023-10-20 09:35 | disposition home or self-care (01) ==
LOC: INF 08:27
PROVIDERS: PCP Internal Medicine; Visit Provider Internal Medicine Medical Oncology
DX: D50.8 Other iron deficiency anemias (principal)
CPT/HCPCS: 96365; J1756

== ENCOUNTER 2023-10-26 08:45 | Outpatient (CLI) | payer BC, SELFPAY ==
[2023-10-26] MEDS: IRON SUCROSE COMPLEX 200 MG in 0.9 % SODIUM CHLORIDE 100 ML 220 MG IV (09:39)
[2023-10-26 09:43] VITALS: BP 127/76; PULSE 72; RESP 17
[2023-10-26] MEDS: SODIUM CHLORIDE 0.9% 50ML BAG 50 ML IV (10:02)
[2023-10-26 10:12] LABS: Alanine Aminotransferase 24 U/L (12-78); Albumin Level 3.9 g/dl (3.5-5.0); Albumin/Globulin Ratio 1.3 (1.1-1.8); Alkaline Phosphatase 69 U/L (38-126); Anion Gap 11.7 mEq/L (5-15); Aspartate Amino Transferase 25 U/L (14-36); Bilirubin,Total 0.3 mg/dl (0.2-1.3); Blood Urea Nitrogen 8 mg/dl (7-17); Calcium 9.9 mg/dl (8.4-10.2); Carbon Dioxide 24 mmol/L (22.0-30.0); Chloride 103 mmol/L (98-107); Estimated Glomerular Filt Rate 105 ml/min (>60); GFR (African American) 128 ML/MIN (>60); Glucose 129 mg/dl (74-100); Potassium 3.7 mmoL/L (3.5-5.1); Sodium 135 mmol/L (136-145); Total Protein,Serum 6.9 g/dl (6.3-8.2)
[2023-10-26 10:15] VITALS: BP 127/75; PULSE 73; RESP 16
[2023-10-27 08:48] LABS: AFP, Tumor Marker 3.3 ng/mL (0.0-9.2)
[2023-11-04 12:20] LABS: Fibrosis Score 0.03; Fibrosis Stage F0-NO FIBROSIS; NASH Grade N0-NO NASH; NASH Score 0.18; Steatosis Grade S2-S3; Steatosis Score 0.57
[2023-11-04 12:21] LABS: Alpha 2-Macroglobulins, Qn 166; Apolipoprotein A-1 154; Bilirubin, Total 0.1; Haptoglobin 165
[2023-11-04 12:22] LABS: ALT (SGPT) P5P 18; AST (SGOT) P5P 15; Cholesterol, Total 144; GGT 24
[2023-11-04 12:23] LABS: Glucose 130; Triglycerides 157
== END 2023-10-26 10:30 | disposition home or self-care (01) ==
LOC: INF 08:47
PROVIDERS: Nurse Practitioner; PCP Internal Medicine; Visit Provider Internal Medicine Medical Oncology
DX: D50.9 Iron deficiency anemia, unspecified (principal); R06.02 Shortness of breath; K76.0 Fatty (change of) liver, not elsewhere classified; E66.01 Morbid (severe) obesity due to excess calories; Z68.42 Body mass index [BMI] 45.0-49.9, adult
CPT/HCPCS: 80053; 82105; 96365; J1756

== ENCOUNTER 2023-10-30 09:18 | Outpatient (CLI) | payer BC, SELFPAY ==
--- NOTE | 2023-10-30 09:19 | US_ITS ---
FINAL REPORT CLINICAL HISTORY: eval liver NAFLD FINDINGS: Sonographic images of the right upper quadrant were obtained. The pancreas is partially obscured.The liver has an unremarkable appearance.The gallbladder appears normal without evidence of gallstones.There is no evidence of biliary ductal dilatation.The common duct measures 4mm. Limited images of the right kidney are unremarkable. IMPRESSION: Unremarkable right upper quadrant ultrasound. Reviewed, Interpreted and Dictated by Alexandru Schulz III, MD Transcribed by Gita Malin Authenticated and [facility]
== END 2023-10-30 23:59 | disposition home or self-care (01) ==
LOC: RAD 09:19
PROVIDERS: PCP Internal Medicine; Visit Provider Nurse Practitioner
DX: K76.0 Fatty (change of) liver, not elsewhere classified (principal)
CPT/HCPCS: 76705

== ENCOUNTER 2023-10-31 14:02 | Outpatient (CLI) | payer BC, SELFPAY ==
[2023-10-31 14:57] VITALS: BMI 46.0
== END 2023-10-31 23:59 | disposition home or self-care (01) ==
LOC: DIETICIAN 14:08
PROVIDERS: PCP Internal Medicine; Visit Provider Nurse Practitioner
DX: K76.0 Fatty (change of) liver, not elsewhere classified (principal); Z71.3 Dietary counseling and surveillance
CPT/HCPCS: 97802

== ENCOUNTER 2023-11-14 10:03 | Outpatient (CLI) | payer BC, SELFPAY ==
[2023-11-14 10:58] LABS: Basophils # 0.1 K/mm3 (0-0.2); Eosinophils # 0.2 K/mm3 (0.0-0.4); Eosinophils % 3.7 % (0.1-12.0); Hematocrit 39.8 % (37.0-47.0); Lymphocytes # 1.6 K/mm3 (0.7-4.5); Lymphocytes % 26.5 % (10-50); Mean Corpuscular HGB Conc 32.6 g/dL (31.8-35.4); Mean Corpuscular Hemoglobin 28.7 pg (27.0-31.2); Mean Corpuscular Volume 88.2 fl (81-99); Monocytes # 0.5 K/mm3 (0.1-1.0); Monocytes % 7.7 % (1.7-9.3); Neutrophils # 3.8 K/mm3 (1.8-7.8); Neutrophils % 61.1 % (37.0-80.0); Platelet Count 226 K/mm3 (142-424); Red Blood Count 4.51 M/mm3 (4.20-5.40); Red Cell Distribution Width 17.2 % (11.5-17.5); White Blood Count 6.2 K/mm3 (4.8-10.8)
[2023-11-14 11:16] LABS: Iron 84 ug/dL (37-170)
[2023-11-14 11:26] LABS: Total Iron Binding Capacity 279 ug/dL (265-497)
[2023-11-14 11:53] LABS: Ferritin 52.9 ng/ml (11.1-264)
== END 2023-11-14 23:59 | disposition home or self-care (01) ==
LOC: LAB 10:04
PROVIDERS: PCP Internal Medicine; Visit Provider Internal Medicine Medical Oncology
DX: D50.9 Iron deficiency anemia, unspecified (principal); Z79.899 Other long term (current) drug therapy
CPT/HCPCS: 36415; 82728; 83540; 83550; 85025

== ENCOUNTER 2024-04-08 07:44 | Outpatient (CLI) | payer BC, SELFPAY ==
--- NOTE | 2024-04-08 07:45 | US_ITS ---
PROCEDURE INFORMATION: Exam: US Abdomen, Limited; Right Upper Quadrant Exam date and time: 04/08/2024 8:05 AM Age: 53 years old Clinical indication: Abdominal tenderness; Patient HX: Elev liver enzymes; Additional info: Schedule before next nunez appt to eval liver styles TECHNIQUE: Imaging protocol: Real time ultrasound of the abdomen with image documentation. Limited exam focused on the right upper quadrant. Total images: 47 COMPARISON: US ABDOMEN LIMITED 02/07/2023 9:09 AM FINDINGS: Liver: Fatty infiltration of the liver. Gallbladder: Sludge is noted within the gallbladder. Gallbladder wall is thickened measuring up to 8 mm. Biliary ducts: Common bile duct measures 3 mm. Pancreas: Visualized pancreas is unremarkable. Right kidney: Right kidney measures 11.1 cm and is within normal limits. IMPRESSION: 1. Sludge is noted within the gallbladder. 2. Fatty infiltration of the liver. 3. Gallbladder wall is thickened measuring up to 8 mm.
== END 2024-04-08 23:59 | disposition home or self-care (01) ==
PROVIDERS: PCP Internal Medicine; Visit Provider Nurse Practitioner
DX: K76.0 Fatty (change of) liver, not elsewhere classified (principal)
CPT/HCPCS: 76705

== ENCOUNTER 2024-04-25 09:51 | Outpatient (CLI) | payer BC, SELFPAY ==
[2024-04-25 10:47] LABS: Chloride 103 mmol/L (98-107)
[2024-04-25 10:48] LABS: Potassium 3.9 mmoL/L (3.5-5.1); Sodium 137 mmol/L (136-145)
[2024-04-25 10:50] LABS: Blood Urea Nitrogen 12 mg/dl (7-17); Estimated Glomerular Filt Rate 88 ml/min (>60); GFR (African American) 107 ML/MIN (>60)
[2024-04-25 10:51] LABS: Alanine Aminotransferase 22 U/L (12-78); Albumin/Globulin Ratio 1.6 (1.1-1.8); Alkaline Phosphatase 63 U/L (38-126); Anion Gap 9.9 mEq/L (5-15); Aspartate Amino Transferase 22 U/L (14-36); Bilirubin,Total 0.6 mg/dl (0.2-1.3); Calcium 9.3 mg/dl (8.4-10.2); Carbon Dioxide 28 mmol/L (22.0-30.0); Globulin 2.5 g/dL (1.3-3.2); Glucose 126 mg/dl (74-100); Total Protein,Serum 6.5 g/dl (6.3-8.2)
== END 2024-04-25 23:59 | disposition home or self-care (01) ==
LOC: LAB 09:52
PROVIDERS: PCP Internal Medicine; Visit Provider Nurse Practitioner Family
DX: K76.0 Fatty (change of) liver, not elsewhere classified (principal)
CPT/HCPCS: 36415; 80053

== ENCOUNTER 2024-05-03 09:54 | Outpatient (CLI) | payer BC, SELFPAY ==
[2024-05-03 10:47] LABS: Basophils # 0.1 K/mm3 (0-0.2); Basophils % 0.7 % (0.1-2.0); Eosinophils # 0.2 K/mm3 (0.0-0.4); Eosinophils % 2.3 % (0.1-12.0); Hematocrit 36.3 % (37.0-47.0); Hemoglobin 12.4 g/dL (12.2-16.2); Lymphocytes # 2.4 K/mm3 (0.7-4.5); Mean Corpuscular HGB Conc 34.2 g/dL (31.8-35.4); Mean Corpuscular Hemoglobin 29.4 pg (27.0-31.2); Monocytes # 0.7 K/mm3 (0.1-1.0); Monocytes % 6.6 % (1.7-9.3); Neutrophils % 67.4 % (37.0-80.0); Platelet Count 239 K/mm3 (142-424); Red Blood Count 4.22 M/mm3 (4.20-5.40); White Blood Count 10.4 K/mm3 (4.8-10.8)
[2024-05-03 11:03] LABS: Iron 70 ug/dL (37-170)
[2024-05-03 11:13] LABS: Total Iron Binding Capacity 379 ug/dL (265-497)
[2024-05-03 11:40] LABS: Ferritin 10.6 ng/ml (11.1-264)
== END 2024-05-03 23:59 | disposition home or self-care (01) ==
LOC: LAB 10:38
PROVIDERS: PCP Internal Medicine; Visit Provider Internal Medicine Medical Oncology
DX: D50.9 Iron deficiency anemia, unspecified (principal)
CPT/HCPCS: 36415; 82728; 83540; 83550; 85025

== ENCOUNTER 2024-05-09 12:22 | Outpatient (CLI) | payer BC, SELFPAY ==
[2024-05-09] MEDS: SODIUM CHLORIDE 0.9% 10ML FLUSH SYRINGE 10 ML IV (12:47)
[2024-05-09 12:48] VITALS: BP 143/87; PULSE 63; RESP 14; TEMP 36.5; O2SAT 96
[2024-05-09] MEDS: IRON SUCROSE COMPLEX 200 MG in 0.9 % SODIUM CHLORIDE 100 ML 220 MG IV (12:48)
[2024-05-09] MEDS: SODIUM CHLORIDE 0.9% 50ML BAG 50 ML IV (12:48)
[2024-05-09 13:25] VITALS: BP 125/74; PULSE 69; RESP 14; TEMP 36.5; O2SAT 97
== END 2024-05-09 13:30 | disposition home or self-care (01) ==
LOC: INF 12:23
PROVIDERS: PCP Internal Medicine; Visit Provider Internal Medicine Medical Oncology
DX: D50.9 Iron deficiency anemia, unspecified (principal)
CPT/HCPCS: 96365; J1756

== ENCOUNTER 2024-05-15 12:23 | Outpatient (CLI) | payer BC, SELFPAY ==
[2024-05-15 12:34] VITALS: BP 131/91; PULSE 89; RESP 18; TEMP 36.6; O2SAT 99
[2024-05-15] MEDS: IRON SUCROSE COMPLEX 200 MG in 0.9 % SODIUM CHLORIDE 100 ML 220 MG IV (12:43)
[2024-05-15] MEDS: SODIUM CHLORIDE 0.9% 50ML BAG 50 ML IV (12:44)
[2024-05-15] MEDS: SODIUM CHLORIDE 0.9% 10ML FLUSH SYRINGE 10 ML IV (12:49)
[2024-05-15 13:30] VITALS: BP 116/75; PULSE 88; RESP 18; O2SAT 99
== END 2024-05-15 13:35 | disposition home or self-care (01) ==
LOC: INF 12:24
PROVIDERS: PCP Internal Medicine; Visit Provider Internal Medicine Medical Oncology
DX: R53.83 Other fatigue (principal)
CPT/HCPCS: 96365; J1756

== ENCOUNTER 2024-05-23 12:18 | Outpatient (CLI) | payer BC, SELFPAY ==
[2024-05-23] MEDS: IRON SUCROSE COMPLEX 200 MG in 0.9 % SODIUM CHLORIDE 100 ML 220 MG IV (12:36)
[2024-05-23] MEDS: SODIUM CHLORIDE 0.9% 50ML BAG 50 ML IV (12:36)
[2024-05-23 12:40] VITALS: BP 121/67; PULSE 68; RESP 17
[2024-05-23 13:20] VITALS: BP 135/80; PULSE 64; RESP 16
== END 2024-05-23 13:30 | disposition home or self-care (01) ==
LOC: INF 12:19
PROVIDERS: PCP Internal Medicine; Visit Provider Internal Medicine Medical Oncology
DX: D50.9 Iron deficiency anemia, unspecified (principal)
CPT/HCPCS: 96365; J1756

== ENCOUNTER 2024-05-24 09:23 | Outpatient (CLI) | payer BC, SELFPAY | END 2024-05-24 23:59 | disposition home or self-care (01) | LOC: PREOP 09:24 | PROVIDERS: PCP Internal Medicine; Visit Provider Surgery | DX: R69 Illness, unspecified (principal) ==

== ENCOUNTER 2024-05-30 06:16 | Day surgery (SDC) | payer BC, SELFPAY ==
[2024-05-24 09:39] VITALS: BMI 42.3
[2024-05-30] VITALS (12 sets, daily range): BP systolic 121–143; BP diastolic 62–91; PULSE 63–79; RESP 18–26; TEMP 36.1–43; O2SAT 93–98
[2024-05-30 06:44] LABS: Urine Pregnancy, HCG Qual. Negative (Negative)
[2024-05-30] MEDS: 0.9 % SODIUM CHLORIDE 1000ML 1,000 ML 25 ML IV (06:57)
--- NOTE | 2024-05-30 07:11 | EXP.ANES.CKL ---
[facility] Disclaimer: The information contained in this section may have been updated after the patient was seen, as this information can be updated by other users. Medical History Hyperlipidemia Coronary artery disease Fatigue Diastolic heart failure Dyspnea Abnormal electrocardiogram [ECG] [EKG] Coronary artery calcification seen on CAT scan Cardiomegaly Coronary artery calcification ASD (atrial septal defect) High blood pressure Surgical History H/O congenital atrial septal defect (ASD) repair History of ankle surgery History of delivery x2 H/O heart surgery Family History Mother Cancer uterine Father Cancer prostate, stomach Diabetes Social History (Updated 05/30/24 @ 06:46 by Allie Contreras RN) Smoking Status: Never smoker alcohol intake: never substance use type: denies use current occupational status: employed Travel in the last 8 weeks: None caffeine: Yes [facility] Anesthesia Checklist Patient Identification Patient Identification: Arm Band and Verbal (Name & ) Structural Data Admitted From: Home Planned Operative Procedure/s: Lap allen Consent for Planned Operative Procedure(s) Verified: Yes Verified Documents: Surgical Consent and History and Physical NPO Status Verified Time NPO: 00:00 Chart Verification Results Verified: CBC and BMP Additional verifications Patient : No Anesthesia Reactions: Yes (nausea / vomiting) Hx Blood Transfusions: No Blood Transfusion Reaction: No Cardiovascular Assessment Heart Sounds: S1 & S2 Pulse Rhythm: Irregular Peripheral Edema: No Airway Assessment Mallampati Score:: Class II C-Spine Mobility Assessed: Yes TMJ Mobility Assessed: Yes Dentition: Good Dentition Neurological Assessment Level of Consciousness: Awake, Alert, Appropriate and Follows Commands Hx Seizures: No Numbness or tingling in extremities: No Anesthesia Plan Anesthesia Risk discussed: Yes Anesthesia Plan: Verified ASA Class: III Anesthesia Type: General
[2024-05-30] MEDS: 0.9 % SODIUM CHLORIDE 100 ML 25 ML IV (07:13)
[2024-05-30] MEDS: CEFAZOLIN 1GM VIAL 2 GM (07:13)
[2024-05-30] MEDS: LIDOCAINE 1% 20ML MDV 20 ML (07:35)
--- NOTE | 2024-05-30 08:34 | P.OP_ITS ---
Date of procedure: 05/30/24 Pre-op Diagnosis:: Abnormal gallbladder ultrasound Right upper quadrant pain Post-op Diagnosis:: Chronic cholecystitis Procedure performed:: Laparoscopic cholecystectomy Surgeon:: Yonathan Martin MD JOURNEYMAN MACHINIST:: Star Nascimento Anesthesia: GETA Estimated blood loss (mL): 15 Operative findings:: Severe infundibular thickening Pericholecystic soft tissue stranding Adjacent infundibular thickening tissue of undetermined significance (matted enlarged lymph nodes versus displaced ductal structure versus displaced vascular structure) Dome down approach completed secondary to above findings Severe adhesions in/around umbilical trocar site with omentum and bowel loops noted (no obvious injury noted) Operative note:: After informed consent was obtained, the patient was taken to the operating room and placed in the supine position. General anesthesia was induced and the abdomen was prepped and draped in a sterile fashion. After infiltration with local anesthetic an infraumbilical incision was made. A Veress needle was placed in position. The abdomen was insufflated. A 5 mm optical trocar was placed in position. Under direct visualization, a 12 mm trocar was placed in the subxiphoid position and 2 additional 5 mm trocars were placed in the right upper quadrant. Inspection of the umbilical trocar site was completed secondary to alternating pressures . Severe adhesions in/around the umbilical trocar site were noted. No obvious injury to any structures was seen. Adhered bowel loops and omentum confirmed visually. The camera was returned to the umbilical trocar site. The gallbladder was elevated up and over the liver margin. The tissue around the cystic duct was carefully dissected. Significant soft tissue thickening and/around the infundibulum was noted. Pericholecystic fat stranding also noted. Adjacent to the infundibulum and additional area of thickened tissue of undetermined significance was noted. This was initially felt to represent an enlarged lymph node; however, secondary to overall size matted enlarged lymph nodes versus displaced ductal structure versus displaced vascular structure could not be ruled out with certainty. No obvious injury to this structure was appreciable. A clip was placed on the infundibulum. Secondary to overall thickening the decision was made to forego additional clips and a dome down approach was completed. Endoloops (x 2) were placed at the infundibulum. Transection distal to the Endoloops was completed with harmonic joy. The gallbladder was placed in a retrieval bag and removed through the subxiphoid trocar site. The right upper quadrant was thoroughly irrigated. No active bleeding or bile leak was noted. Fascia at the subxiphoid trocar site was reapproximated utilizing the NeoClose device. The remaining trocars were removed. All wounds were irrigated and skin was closed with 4-0 Monocryl in an interrupted mattress fashion to facilitate hemostasis. The patient's anesthetic agents were reversed and extubation was completed prior to transfer to recovery in stable condition. Condition: stable Disposition: PACU Specimens:: Gallbladder Complications:: No immediate
--- NOTE | 2024-05-30 08:45 | P.PNANES_ITS ---
[facility] Anesthesia Record Part I Anesthesia Record I Intake, IV Amount: 1,100 Hydration: Adequate Estimated blood loss (mL): 15 Urine output (mL): 0 Blood Products used (#): none Blood Pressure: 140/74 SaO2: 94 Pulse Rate: 79 Airway Patency: Patent Respiratory Rate: 26 Temperature: 97.3 F Patient is:: Drowsy and Stable Stable to PACU at:: 08:29
[2024-05-30] MEDS: MORPHINE 2MG/ML SYRINGE 1 MG IV ×2 (09:15→09:20)
[2024-05-30] MEDS: PROMETHAZINE HCL 25MG/ML 1ML VIAL 6.25 MG IV (09:15)
[2024-05-30] MEDS: SODIUM CHLORIDE 0.9% 25ML BAG 25 ML IV (09:15)
--- NOTE | 2024-06-03 09:30 | P.PNANES_ITS ---
[facility] Anesthesia Record Part II Anesthesia Record Part II Discharge Time: 09:20 Destination: Surgical Day Care (OP Surgery) PACU nurse assessment reviewed?: Yes Patient Condition:: Good Anesthesia Complications:: None Swallowing reflex intact?: Yes Airway Patency: Patent Cyanosis?: No Blood Pressure: 140/88 SaO2: 95 Respiratory Rate: 18 Pulse Rate: 71 Temperature: 97.1 F Mental Status: Alert & Oriented Pain level:: 3 Nausea and/or vomitting:: None Intake, IV Amount: 0 Hydration: Adequate
[2024-06-03 09:31] VITALS: BP 140/88; PULSE 71; RESP 18; TEMP 36.2; O2SAT 95
== END 2024-05-30 10:30 | disposition home or self-care (01) ==
PROVIDERS: PCP Internal Medicine; Visit Provider Surgery
PROC: 0FT44ZZ Resection of Gallbladder, Percutaneous Endoscopic Approach (ICD-10-PCS; CPT 47562; principal; 2024-05-30 07:30)
DX: R10.11 Right upper quadrant pain (principal); R11.0 Nausea; K81.1 Chronic cholecystitis
CPT/HCPCS: 47562; 81025; 96374; J3490; J1100; J2250; J2270; J2405; J2550; J3010; J7030; J7120

== ENCOUNTER 2024-07-09 14:56 | Outpatient (CLI) | payer BC, SELFPAY ==
[2024-07-09 15:32] LABS: Basophils % 0.4 % (0.1-2.0); Eosinophils # 0.2 K/mm3 (0.0-0.4); Eosinophils % 1.8 % (0.1-12.0); Hematocrit 37.9 % (37.0-47.0); Hemoglobin 12.4 g/dL (12.2-16.2); Lymphocytes # 1.7 K/mm3 (0.7-4.5); Lymphocytes % 18.3 % (10-50); Mean Corpuscular HGB Conc 32.7 g/dL (31.8-35.4); Mean Corpuscular Hemoglobin 29.1 pg (27.0-31.2); Mean Platelet Volume 10.2 fl (7.4-10.4); Monocytes # 0.7 K/mm3 (0.1-1.0); Monocytes % 7.9 % (1.7-9.3); Neutrophils # 6.7 K/mm3 (1.8-7.8); Platelet Count 229 K/mm3 (142-424); Red Blood Count 4.26 M/mm3 (4.20-5.40); Red Cell Distribution Width 14.3 % (11.5-17.5); White Blood Count 9.4 K/mm3 (4.8-10.8)
[2024-07-09 16:18] LABS: Iron 61 ug/dL (37-170)
[2024-07-09 16:27] LABS: Total Iron Binding Capacity 347 ug/dL (265-497)
[2024-07-09 16:54] LABS: Ferritin 34.4 ng/ml (11.1-264)
== END 2024-07-09 23:59 | disposition home or self-care (01) ==
LOC: LAB 14:57
PROVIDERS: PCP Internal Medicine; Visit Provider Internal Medicine Medical Oncology
DX: D50.9 Iron deficiency anemia, unspecified (principal)
CPT/HCPCS: 36415; 82728; 83540; 83550; 85025

== ENCOUNTER 2024-11-07 13:50 | Outpatient (CLI) | payer BC, SELFPAY ==
[2024-11-07 14:34] LABS: Basophils % 0.6 % (0.1-2.0); Eosinophils # 0.2 Kmm3 (0.0-0.4); Eosinophils % 2.3 % (0.1-12.0); Hematocrit 39.8 % (37.0-47.0); Hemoglobin 12.9 g/dL (12.2-16.2); Immature Granulocytes # 0.03 10^3uL; Immature Granulocytes % 0.4 %; Lymphocytes # 1.5 K/mm3 (0.7-4.5); Lymphocytes % 21.6 % (10-50); Mean Corpuscular HGB Conc 32.4 g/dL (31.8-35.4); Mean Corpuscular Hemoglobin 28.4 pg (27.0-31.2); Mean Corpuscular Volume 87.7 fl (81-99); Mean Platelet Volume 10.1 fl (7.4-10.4); Monocytes # 0.5 K/mm3 (0.1-1.0); Monocytes % 7.2 % (1.7-9.3); Neutrophils # 4.8 K/mm3 (1.8-7.8); Neutrophils % 67.9 % (37.0-80.0); Nucleated Red Blood Cells # 0 10^3/uL; Nucleated Red Blood Cells % 0 %; Platelet Count 244 K/mm3 (142-424); Red Blood Count 4.54 M/mm3 (4.20-5.40); Red Cell Distribution Width 13.3 % (11.5-17.5); Red Cell Distribution Width-SD 42.6 fL; White Blood Count 7.1 K/mm3 (4.8-10.8)
[2024-11-07 15:07] LABS: Albumin Level 4.1 g/dl (3.5-5.0); Chloride 104 mmol/L (98-107); Sodium 137 mmol/L (136-145)
[2024-11-07 15:10] LABS: Alanine Aminotransferase 36 U/L (12-78); Albumin/Globulin Ratio 1.6 (1.1-1.8); Alkaline Phosphatase 68 U/L (38-126); Aspartate Amino Transferase 33 U/L (14-36); Bilirubin,Total 0.4 mg/dl (0.2-1.3); Blood Urea Nitrogen 13 mg/dl (7-17); Calcium 10.2 mg/dl (8.4-10.2); Carbon Dioxide 28 mmol/L (22.0-30.0); Estimated Glomerular Filt Rate 75 ml/min (>60); GFR (African American) 91 ML/MIN (>60); Globulin 2.6 g/dL (1.3-3.2); Glucose 137 mg/dl (74-100); Total Protein,Serum 6.7 g/dl (6.3-8.2)
[2024-11-07 15:36] LABS: Iron 66 ug/dL (37-170)
[2024-11-07 15:45] LABS: Total Iron Binding Capacity 359 ug/dL (265-497)
[2024-11-07 16:12] LABS: Ferritin 12.2 ng/ml (11.1-264)
== END 2024-11-07 23:59 | disposition home or self-care (01) ==
LOC: LAB 13:51
PROVIDERS: Internal Medicine Medical Oncology; PCP Internal Medicine; Visit Provider Nurse Practitioner Family
DX: D64.9 Anemia, unspecified (principal); K76.0 Fatty (change of) liver, not elsewhere classified
CPT/HCPCS: 36415; 80053; 82728; 83540; 83550; 85025

== ENCOUNTER 2025-02-27 13:07 | Outpatient (CLI) | payer BC, SELFPAY ==
--- OUTSIDE RECORDS SUMMARY | 2025-01-02 15:30 | XMS_ITS | Encounter Summary ---
Author Organization Healthcare Address [address] [place] [address] Care Team Providers Care Yarding Engineer Name Role Phone Unavailable Primary Care Provider Unavailabl e Reason for Referral * Other Medical (Routine) - Authorized Specialty Diagnoses / Procedures Referred By Contac t Referred To Contact Pain Medicine Diagnoses Neuralgia and neuritis, unspecified Procedures Nerve Block - Other Peripheral Nerve / Branch Gerald Al MD [address] [facility] [place] [address] Phone: tel: fax: [facility] Interventional Pain Medicine [address] [place] [address] Phone: tel: fax: Referral ID Status Reason Start Date Expiration Date V isits Requested Visits Authorized [id number] Authorized 01/02/2025 07/04/2026 1 1 Encounter Details Date Type Department Care Team (Late st Contact Info) Description 01/02/2025 3:30 PM EDT Office Visit Interventional Pain Medicine [address] [place] [address] Gerald Al MD [address] [place] [address] Neuralgia and neuritis, unspecified (Primary Dx) Social History Tobacco Use Types Packs/Day Years Used Date Smoking Tobacco: Former Cigarettes 0.5 13 0 06/19/1989 - 06/19/2002 Passive Smoke Exposure: Past Smokeless Tobacco: Never Alcohol Use Standard Drinks/Week Comments Not Currently 0 (1 standard drink = 0.6 oz pur e alcohol) socially Comments No Sex and Gender Information Value Date Recorded Sex Assigned at Not on file Legal Sex Female 7:02 PM EDT Gender Identity Not on file Sexual Orientation Not on file documented as of this encounter Miscellaneous Notes * Progress Notes - Gerald Al MD - 01/02/2025 3:30 PM EDT Images from the original note were not included. Interventional Pain Medicine Telehealth Patient Note Telehealth Statement Patient Verification Patient identity has been confirmed using name and date of ? Yes Authorizations and Agreements/Telemedicine Consent sent and consent confirmed? Yes Patient Location: Home/Other Patient confirms they are physically located in [place]? Yes If the patient is not physically located in [place], the provider has confirmed with [facility] thatthe provider is authorized to provide services in patient's stated location? N/A Provider Location: [facility] facility Audio and video or audio only? Audio and video Total visit time: 10 minutes Subjective: Chief Complaint: knee pain Interval History: Patient presents via telehealth for follow up evaluation of her bilateral knee pain. She is s/p bilateral genicular RFA on 11/29/24. Today, she reports worsened knee pain below the knee cap on the medial aspect of the knee. History of Present Illness: Neelam Chavez is a 54 y.o. female with PMHx of HTN, HLD. Patient referred by [facility] for evaluation of bilateral knee pain. She had previously undergone intra-articular steroid and hyaluronic acid gel injections at an outside facility. Presents with: Site: bilateral knees, medial Onset: years, worsening Severity: /10 Descriptors: aching, sharp, burning Aggravating Factors: standing, walking, stairs Relieving Factors: resting (sometimes) Associated Symptoms: denied instability Global Pain Score: 23/100 Current Disabilities: limitations in ADLs/IADLs Functional Goals of Treatment: improvement in function Current Medication: Current Pain Medications aspirin 81 MG EC tablet Take 1 tablet by mouth daily. Previous Medication: Tylenol Ibuprofen Advil Diclofenac topical gel Previous Conservative Treatment: heat ice medication trials modified activities rest unable to complete HEP due to increased pain unable to complete physical therapy due to increased pain Previous Interventions/Consults: Intra-articular steroid injections - lost efficacy Intra-articular hyaluronic acid gel - no benefit Bilateral genicular RFA (11/29/24) Other Medical History Work Status/Pain related to work injury: No reports that she quit smoking about 22 years ago. Her smoking use included cigarettes. She started smoking about 35 years ago. She has a 6.5 pack-year smoking history. She has been exposed to tobaccosmoke. She has never used smokeless tobacco. Anticoagulation: Yes; aspirin Review of Systems: CONSTITUTIONAL: denies fevers, chills HEENT: denies swallowing difficulties, sore throat CARDIOVASCULAR: denies chest pain, palpitations, syncope RESPIRATORY: denies shortness of breath, cough, wheezing GI: denies change in bowel habits, nausea, vomiting : denies change in bladder function, frequency, dysuria SKIN: denies rash, skin changes MSK: Per HPI NEURO: Per HPI PSYCH: Per HPI General Physical Exam: Physical Exam (Limited d/t Telehealth) Constitutional Appears well-developed and well-nourished Head Normocephalic and atraumatic. Pulmonary/Chest Effort normal, no shortness of breath noted Neurological Alert and oriented to person, place, and time. Fluent speech Psychiatric Normal mood and affect, behavior and judgment MSK Sitting upright. No abnormal movements. Pt identified the medial tibial plateau as the primary site of ongoing pain Imaging/Studies: XR Knees (10/01/24): bilateral tri compartment OA, worse on the right than the left; worst at in themedial joint compartment of the right knee Assessment & Plan: Neelam Chavez is a 54 y.o. #Bilateral Knee Pain, Chronic Worsening #Knee Osteoarthritis -has tried and failed intra-articular steroid and hyaluronic acid joint injections -s/p bilateral genicular nerve RFA on 11/29/24 -she now has pain in the region of the infrapatellar branch of the saphenous nerve on the left -will bring into clinic for nerve block of the infrapatellar branch of the saphenous documented in this encounter Plan of Treatment Scheduled Orders Name Type Priority Associated Diagnoses Orde r Schedule Nerve Block - Other Peripheral Nerve / Branch Procedures Routine Neuralgia and neuritis, unspecified 1 Occurrences starting 01/02/2025 until 07/06/2026 documented as of this encounter Visit Diagnoses Diagnosis Neuralgia and neuritis, unspecified- Primary documented in this encounter Additional Health Concerns Assessment Noted Time A fall risk assessment has been complete d for the patient 11/29/2024 10:03 AM EDT A Body Mass Index follow-up plan has been documented for the patient 01/02/2025 3:43 PM EDT documented as of this encounter
--- OUTSIDE RECORDS SUMMARY | 2025-01-14 10:00 | XMS_ITS | Encounter Summary ---
Author Organization Healthcare Address [address] [place] [address] Care Team Providers Care Painting Supervisor Name Role Phone Radha Gutierrez MD Primary Care Provider [phone] Reason for Referral * Consultation (Routine) - Authorized Specialty Diagnoses / Procedures Referred By Contpartha t Referred To Contact Physical Therapy Diagnoses Lumbar back pain Chronic pain of left knee Radicular pain of left lower extremity Neelam Birmingham PA [address] [place] [address] Phone: tel: fax: Referral ID Status Reason Start Date Expiration Date Visits Requested Visits Authorized [id number] Authorized Consult and Treat 01/14/2025 07/16/2026 1 1 Reason for Visit * Reason Comments Follow-up Encounter Details Date Type Department Care Team ([facility] st Contact Info) Description 01/14/2025 10:00 AM EDT Office Visit Medical Office Building [facility] [address], [address] [place] [address] Neelam Birmingham PA [address] [place] [address] Lumbar back pain (Primary Dx); Chronic pain of left knee; Radicular pain of left lower extremity Social History Tobacco Use Types Packs/Day Years [...] on file documented as of this encounter Last Filed Vital Signs Vital Sign Reading Time Taken Comments Blood Pressure 128/85 01/14/2025 9:43 AM EDT Pulse 71 01/14/2025 9:43 AM EDT Temperature - - Respiratory Rate - - Oxygen Saturation 98% 01/14/2025 9:43 AM EDT Inhaled Oxygen Concentration - - Weight 116 kg (255 lb) 01/14/2025 9:43 AM EDT Height 170.2 cm (5' 7 ) 01/14/2025 9:43 AM EDT Body Mass Index 39.94 01/14/2025 9:43 AM EDT documented in this encounter Miscellaneous Notes * Progress Notes - Neelam Birmingham PA - 01/14/2025 10:00 AM EDT Images from the original note were not included. Subjective: Neelam Chavez is a 54 y.o. y/o female who comes in today for follow up of left knee pain. Patient has now undergone genicular nerve RFA to the bilateral knee, failed RAMOS injections and CSI to the left knee. Patient reports none of these modalities improved her knee pain. She has also tried APAP andibuprofen with no relief of symptoms. The patient has radicular symptoms into the LLE. Has not undergone lumbar spine workup. I have reviewed and updated the patient's past medical history, past surgical history, social history, and family history. This is located both in the patient's note and their intake form that has been scanned into the medical record for today's visit. 14 point review of systems was reviewed per signed intake sheet and is otherwise negative except asnoted above. Objective: Body mass index is 39.94 kg/m??. 11/29/2024 10:31 AM 11/29/2024 10:36 AM 11/29/2024 10:41 AM 11/29/2024 10:46 AM 11/29/2024 10:51 AM 11/29/2024 11:02 AM 01/14/2025 9:43 AM Vitals Systolic 111 128 133 136 152 150 128 Diastolic 64 70 70 71 75 79 85 Heart Rate 67 66 72 74 64 62 71 Resp 16 16 17 16 17 18 Height (cm) 170.2 cm Weight (kg) 115.667 kg BMI 39.94 kg/m2 BSA (m2) 2.34 m2 Visit Report Report Left knee- TTP about medial joint line - patellofemoral crepitus 0-125 ROM Stable ligamentously Neurovascular intact distally My independent interpretation of radiographic testing shows mild tricompartmental osteoarthritis ofthe left knee, predominately in the medial and patellofemoral compartments. Notes reviewed: Interventional pain, previous clinic notes Results of tests reviewed: previous radiographs Assessment and plan: This problem is chronic with some progression. LLE radicular pain, chronic left knee pain- discussed with patient she has now failed numerous modalities in regard to her left knee. We will pursue lumbar spine workup to ensure this is not causing her pain and symptoms. Will order MRI of the lumbar spine in addition to prescribe PT at today's visit. We will also prescribe diclofenac for patient to take in lieu of ibuprofen. Patient's appointment for repeat RFA will be canceled due to no relief from previous. Patient agreeable to the plan in place. documented in this encounter Plan of Treatment Scheduled Referrals Name Type Priority Associated Diagnoses Order Schedule Physical Therapy (outgoing) Outpatient Referral Routine Lumbar back pain Chronic pain of left knee Radicular pain of left lower extremity 1 Occurrences starting 01/14/2025 until 07/18/2026 documented as of this encounter Results * END TOUCHING MACHINE OPERATOR: L-Spine: XR Lumbar Spine 2 or 3 Views (AP/Lateral) (01/14/2025 10:40 AM EDT) Anatomical Region Laterality Modality Spine, L-spine Digital Radiogra phy Impressions 01/14/2025 2:43 PM EDT No acute fracture. Multilevel grade 1 retrolisthesis and mild to moderate degenerative changes, as described above. CRITICAL RESULT: No. COMMUNICATION: Per this written report. By electronically signing this report, I, the attending physician, attest that I have personally reviewed the images/data for the above examination(s) and agree with the final edited report. Drafted by Valdo Bhatia MD on 01/14/2025 1:38 PM Final report signed by Mariel Layne MD on 01/14/2025 2:43 PM Narrative 01/14/2025 2:43 PM EDT CLINICAL INDICATION: BACK PAIN TECHNIQUE: XR LUMBAR SPINE 2 OR 3 VIEWS COMPARISON: None. FINDINGS: 5 lumbar type vertebral bodies. Mild dextrocurvature at the superior lumbar spine. Grade 1 retrolisthesis of L1 on L2 and L2 on L3. No acute fracture. Multilevel loss of intervertebral disc height, greatest at L1-L2 and L2-L3, where it is moderate. Mild multilevel endplate degenerative changes, including anterior osteophytosis. Multilevel facet arthropathy. Likely cholecystectomy clip projecting over the abdominal right upper quadrant. Procedure Note Mariel Layne MD - 01/14/2025 CLINICAL INDICATION: BACK PAIN TECHNIQUE: XR LUMBAR SPINE 2 OR 3 VIEWS COMPARISON: None. FINDINGS: 5 lumbar type vertebral bodies. Mild dextrocurvature at the superiorlumbar spine. Grade 1 retrolisthesis of L1 on L2 and L2 on L3. No acutefracture. Multilevel loss of intervertebral disc height, greatest at L1-L2and L2-L3, where it is moderate. Mild multilevel endplate degenerativechanges, including anterior osteophytosis. Multilevel facet arthropathy.Likely cholecystectomy clip projecting over the abdominal right upperquadrant. IMPRESSION: No acute fracture. Multilevel grade 1 retrolisthesis and mild to moderatedegenerative changes, as described above. CRITICAL RESULT: No. COMMUNICATION: Per this written report. By electronically signing this report, I, the attending physician, attestthat I have personally reviewed the images/data for the aboveexamination(s) and agree with the final edited report. Drafted by Valdo Bhatia MD on 01/14/2025 1:38 PM Final report signed by Mariel Layne MD on 01/14/2025 2:43 PM Neelam Mrzljak PA IMG XR PROCEDURES Final Resul t documented in this encounter Visit Diagnoses Diagnosis Lumbar back pain- Primary Lumbago Chronic pain of left knee Radicular pain of left lower extremity Lumbar back pain Lumbago documented in this encounter Additional Health Concerns Assessment Noted Time A fall risk assessment has been complete d for the patient 01/14/2025 9:42 AM EDT A Body Mass Index follow-up plan has been documented for the patient 01/14/2025 10:37 AM EDT documented as of this encounter Care Teams Painting Supervisor Relationship Specialty Start Date End Date Radha Gutierrez MD [phone] [phone] PCP - General 01/10/25 documented as of this encounter
--- OUTSIDE RECORDS SUMMARY | 2025-01-14 10:32 | XMS_ITS | Encounter Summary ---
Author Organization Healthcare Address [address] [place] [address] Care Team Providers Care Blueprint Developer Name Role Phone Radha Gutierrez MD Primary Care Provider +1- [phone] Encounter Details Date Type Department Care Team (Latest Contact Info) Description 01/14/2025 10:32 AM EDT - 01/14/2025 11:59 PM EDT Hospital Encounter Medical Office Building Radiology [address] [place] [address] Lumbar back pain Discharge Disposition: Home or Self Care Social History Tobacco Use Types Packs/Day Years [...] on file documented as of this encounter Medications at Time of Discharge aspirin 81 MG EC tablet Take 1 tablet by mouth daily. Blood Pressure Monitoring (Blood Pressure Digital Soln) kit 10/08/2024 cholecalciferol (Vitamin D-3) 250 MCG (30567 UT) capsule Take 1 capsule by mouth daily. cyanocobalamin (Vitamin B-12) 1000 MCG/ML injection INJECT 1 ML (CC) ONCE EVERY MONTH 02/04/2024 furosemide (Lasix) 20 MG tablet TAKE 1 TABLET BY MOUTH ONCE DAILY FOR FLUID 09/25/2024 losartan (Cozaar) 25 MG tablet Take 1 tablet by mouth daily. 09/22/2024 rosuvastatin (Crestor) 10 MG tablet take 1 tablet by mouth once daily for cholesterol 09/05/2024 spironolactone (Aldactone) 25 MG tablet take 1 tablet by mouth once daily for blood pressure 09/14/2024 diclofenac (Voltaren) 75 MG EC tabletIndication s:Lumbar back pain,Chronic pain of left knee,Radicular pain of left lower extremity Take 1 tablet by mouth 2 times a day. Do not crush, chew, or split. 60 tablet 01/14/2025 documented as of this encounter Plan of Treatment Not on file documented as of this encounter Procedures Procedure Name Priority Date/Time Associated Diagnosis Comments XR LUMBAR SPINE 2 OR 3 VIEWS Routine 01/14/2025 10:40 AM EDT Lumbar back pain documented in this encounter Results * PERSONNEL WORKER: L-Spine: XR Lumbar Spine 2 or 3 [...] Layne MD on 01/14/2025 2:43 PM Neelam zldaksha JM IMG XR PROCEDURES Final Resul t documented in this encounter Visit Diagnoses Diagnosis Lumbar back pain Lumbago documented in this encounter Additional Health Concerns Assessment Noted Time A fall risk assessment has been complete d for the patient 01/14/2025 9:42 AM EDT A Body Mass Index follow-up plan has been documented for the patient 01/14/2025 10:37 AM EDT documented as of this encounter Care Teams Blueprint Developer Relationship Specialty Start Date End Date Radha Gutierrez MD [address] [place] [address] PCP - General 01/10/25 documented as of this encounter
--- OUTSIDE RECORDS SUMMARY | 2025-02-27 13:18 | XMS_ITS | Encounter Summary ---
Author Organization Healthcare Address [address] [place] [address] Care Team Providers Care Polisher Aluminum Name Role Phone Radha Gutierrez MD Primary Care Provider +1- [phone] Encounter Details Date Type Department Care Team (Late st Contact Info) Description 01/07/2025 Telephone Interventional Pain Medicine [address] [place] [address] Gerald Al MD [address] [place] [address] Social History Tobacco Use Types Packs/Day Years [...] as of this encounter Miscellaneous Notes * Telephone Encounter - Neelam Hudson S - 01/07/2025 10:30 AM EDT Clinical Concern/Question Reason for Call: Mikaela pt. Pt is asking to get a procedure scheduled for her L knee as soon as possible. Best contact number: [phone] (home) Optimal time of day to reach caller: ANYTIME Additional comments/information from caller: None Note: Please do not reply to this message. Follow-up communication and further actions as a result of this message need to be communicated with the patient directly, if the patient is not active onMyChart. If the patient is active on MyChart, they will receive notification of the communication/outcome via [facility]. documented in this encounter Plan of Treatment Not on file documented as of this encounter Visit Diagnoses Not on filedocumented in this encounter Additional Health Concerns Assessment Noted Time A fall risk assessment has been complete d for the patient 11/29/2024 10:03 AM EDT A Body Mass Index follow-up plan has been documented for the patient 01/02/2025 3:43 PM EDT documented as of this encounter Care Teams Polisher Aluminum Relationship Specialty Start Date End Date Radha Gutierrez MD [address] [place] [address] PCP - General 01/10/25 documented as of this encounter
--- OUTSIDE RECORDS SUMMARY | 2025-02-27 13:18 | XMS_ITS | Encounter Summary ---
Author Organization Healthcare Address [address] [place] [address] Care Team Providers Care Infection Control Coordinator Name Role Phone Unavailable Primary Care Provider Unavailabl e Encounter Details Date Type Department Care Team (Late st Contact Info) Description 01/03/2025 Telephone Interventional Pain Medicine [address] [place] [address] Gerald Al MD [address] [place] [address] Social History Tobacco Use Types [...] encounter Miscellaneous Notes * Telephone Encounter - Nichelle Batista - 01/03/2025 9:54 AM EDT LVM to schedule appt. documented in this encounter Plan of Treatment [...]
--- OUTSIDE RECORDS SUMMARY | 2025-02-27 13:18 | XMS_ITS | Encounter Summary ---
Author Organization Healthcare Address [address] [place] [address] Care Team Providers Care Environmental Restoration Planner Name Role Phone Radha Gutierrez MD Primary Care Provider +1- [phone] Encounter Details Date Type Department Care Team (Latest Contact Info) Description 01/14/2025 Travel Social History Tobacco Use Types Packs/Day Years [...] on file documented as of this encounter Plan of [...] documented as of this encounter Care Teams Environmental Restoration Planner Relationship Specialty Start Date End Date Radha Gutierrez MD [address] [place] [address] PCP - General 01/10/25 documented as of this encounter
--- OUTSIDE RECORDS SUMMARY | 2025-02-27 13:18 | XMS_ITS | Encounter Summary ---
Author Organization Healthcare Address [address] [place] [address] Care Team Providers Care Commission Associate Name Role Phone Unavailable Primary Care Provider Unavailabl e Reason for Visit * Reason Onset Date Comments [facility] Clinical Concern/Question 01/01/2025 Encounter Details Date Type Department Care Team (Late st Contact Info) Description 01/01/2025 Telephone Interventional Pain Medicine [address] [place] [address] Gerald Al MD [address] [place] [address] [facility] Clinical Concern/Question Social History Tobacco Use Types Packs/Day Years [...] encounter Miscellaneous Notes * Telephone Encounter - Zoie Massey - 01/02/2025 10:18 AM EDT Patient has been scheduled. * Telephone Encounter - Akua Rojas - 01/01/2025 1:08 PM EDT Clinical Concern/Question Reason for Call: Dr Al/Patient had Bilateral genicular RFA on 11/29/24 and is still having bilat knee pain. Would like to speak to a nurse regarding what next steps will be. Please call to advise, thanks Best contact number: [phone] (mobile) Optimal time of day to reach caller: ANYTIME Additional comments/information from caller: None Note: Please do not reply to this message. Follow-up communication and further actions as a result of this message need to be communicated with the patient directly, if the patient is not active onMyChart. If the patient is active on MyChart, they will receive notification of the communication/outcome via [facility]. documented in this encounter Plan of Treatment Not on file documented as of this encounter Visit Diagnoses Not on filedocumented in this encounter Additional Health Concerns Assessment Noted Time A fall risk assessment has been complete d for the patient 11/29/2024 10:03 AM EDT A Body Mass Index follow-up plan has been documented for the patient 12/02/2024 8:08 AM EDT documented as of this encounter
--- OUTSIDE RECORDS SUMMARY | 2025-02-27 13:19 | XMS_ITS | Clinical Summary ---
Author Organization Healthcare Address [address] [place] [address] Care Team Providers Care Trimmer Machine Operator Name Role Phone Radha Gutierrez MD Primary Care Provider +1- [phone] Allergies No known active allergies Medications cyanocobalamin (Vitamin B-12) 1000 MCG/ML injection INJECT 1 ML (CC) ONCE EVERY MONTH 4 Active furosemide (Lasix) 20 MG tablet TAKE 1 TABLET BY MOUTH ONCE DAILY FOR FLUID 5 Active losartan (Cozaar) 25 MG tablet Take 1 tablet by mouth daily. 5 Active rosuvastatin (Crestor) 10 MG tablet take 1 tablet by mouth once daily for cholesterol 5 Active spironolactone (Aldactone) 25 MG tablet take 1 tablet by mouth once daily for blood pressure 5 Active cholecalciferol (Vitamin D-3) 250 MCG (58251 UT) capsule Take 1 capsule by mouth daily. Active aspirin 81 MG EC tablet Take 1 tablet by mouth daily. Active Blood Pressure Monitoring (Blood Pressure Digital Soln) kit 5 Active diclofenac (Voltaren) 75 MG EC tabletIndicatio ns:Lumbar back pain,Chronic pain of left knee,Radicular pain of left lower extremity Take 1 tablet by mouth 2 times a day. Do not crush, chew, or split. 60 tablet 5 02/14/20 25 Hospital, Clinic, or Other Facility Administered Medication Ordered Dose Route Frequency Start Date End Date Status sodium chloride 0.9 % flush 3 mLIndications:Arthritis of both knees 3 mL IV As needed 11/29/2024 Active Active Problems Problem Noted Date Diagnosed Date Class III obesity with body mass index (BMI) of 40.0 or higher 01/06/2025 Encounters Date Type Department Care Team Description 01/14/2025 10:32 AM EDT - 01/14/2025 11:59 PM EDT Hospital Encounter Medical Office Building Radiology [address] [place] [address] Lumbar back pain Discharge Disposition: Home or Self Care 01/14/2025 10:00 AM EDT Office Visit Medical Office Building [facility] [address] [facility], [address] [place] [address] Neelam Birmingham PA Lumbar back pain (Primary Dx); Chronic pain of left knee; Radicular pain of left lower extremity 01/14/2025 Travel 01/07/2025 Telephone Interventional Pain Medicine [address] [place] [address] Gerald Al MD 01/03/2025 Telephone Interventional Pain Medicine [address] [place] [address] Gerald Al MD 01/02/2025 3:30 PM EDT Office Visit Interventional Pain Medicine [address] [place] [address] Gerald lA MD Neuralgia and neuritis, unspecified (Primary Dx) 01/02/2025 Travel 01/01/2025 Telephone Interventional Pain Medicine [address] [place] [address] Gerald Al MD [facility] Clinical Concern/Question 11/29/2024 10:00 AM EDT Procedure Visit Interventional Pain Medicine [address] [place] [address] Gerald Al MD Arthritis of both knees 11/29/2024 Orders Only External Location [address] [place] [address] Provider, External 11/29/2024 Travel from Last 3 Months Social History Tobacco Use Types Packs/Day Years [...] on file Sexual Orientation Not on file Last Filed Vital Signs Vital Sign Reading Time Taken Comments Blood Pressure 128/85 01/14/2025 9:43 AM EDT Pulse 71 01/14/2025 9:43 AM EDT Temperature 36.4 C (97.6 F) 11/29/2024 10:05 AM EDT Respiratory Rate 18 11/29/2024 11:02 AM EDT Oxygen Saturation 98% 01/14/2025 9:43 AM EDT Inhaled Oxygen Concentration - - Weight 116 kg (255 lb) 01/14/2025 9:43 AM EDT Height 170.2 cm (5' 7 ) 01/14/2025 9:43 AM EDT Body Mass Index 39.94 01/14/2025 9:43 AM EDT Plan of Treatment Health Maintenance Due Date Last Done Comments [facility]-Depression Screening 1972 [facility]-HIV Screening 1972 [facility]-Hepatitis C Screening 1972 [facility]-Infant/Child/Adol SDOH Screenings 1972 [facility]- SDOH Screenings 1990 [facility]-Adult SDOH Screenings 1990 [facility]-Hepatitis B Vaccines (1 of 3 - 19+ 3-dose series) 1991 [facility]-Pap Smear 1993 [facility]-Cervical Cancer Screening 2002 [facility]-HPV/Cotest 2002 CT Colonography 2017 Colonoscopy 2017 FIT-DNA 2017 FIT 2017 FOBT 2017 Sigmoidoscopy 2017 [facility]-Colorectal Cancer Screening 2017 [facility]-Breast Cancer Screening 2022 [facility]-Pneumococcal Vaccine: 50+ Years (1 of 1 - PCV) 2022 [facility]-Zoster Vaccines (1 of 2) 2022 [id number]-55 Vaccine ( season) 2025 08/24/2021, 01/01/2021, 12/04/2020 [facility]-Influenza Vaccine (#1) 2025 04/20/2011 [facility]-DTaP,Tdap,and Td Vaccines (2 - Td or Tdap) 01/17/2027 01/17/2017, 08/15/2005 [facility]-Obesity Intervention Completed 025, 01/02/2025, 11/29/2024, Additional history exists HPV Vaccines Aged Out No longer eligi ble based on patient's age to complete this topic [facility]-HIB Vaccines Aged Out No longer e ligible based on patient's age to complete this topic [facility]-Hepatitis A Vaccines Aged Out No longer eligible based on patient's age to complete this topic [facility]-IPV Vaccines Aged Out No longer e ligible based on patient's age to complete this topic [facility]-Rotavirus Vaccines Aged Out No lo nger eligible based on patient's age to complete this topic Procedures Procedure Name Priority Date/Time Associated Diagnosis Comments XR LUMBAR SPINE 2 OR 3 VIEWS Routine 01/14/2025 10:40 AM EDT Lumbar back pain MODERATE SEDATION Routine 11/29/2024 10: 00 AM EDT Arthritis of both knees AL DESTRUCTION NEUROLYTIC AGT GENICULAR NERVE W/IMG Routine 11/29/2024 10:00 AM EDT Arthritis of both knees POC ULTRASOUND 11/29/2024 from Last 3 Months Results * SECOND HAND: L-Spine: XR Lumbar Spine 2 or 3 [...] Mariel Layne MD on 01/14/2025 2:43 PM us Neelam Wallerzljak PA IMG XR PROCEDURES Final Resul t * AL DESTRUCTION NEUROLYTIC AGT GENICULAR NERVE W/IMG (11/29/2024 10:00 AM EDT) Narrative Gerald Al MD - 11/29/2024 10:00 AM EDT Gerald Al MD 12/02/2024 8:08 AM RFA - Genicular Nerve Performed by: Star Cabrera MD Authorized by: Gerald Al MD Result [facility] Gerald Al MD IN CLINIC/BEDSIDE ORDERABLES Fi nal Result * Moderate Sedation (11/29/2024 10:00 AM EDT) Narrative Megha Villafana RN - 11/29/2024 10:00 AM EDT Megha Villafana RN 12/02/2024 8:08 AM Moderate Sedation Performed by: Carlin Vanegas Authorized by: Gerald Al MD Consent: Consent obtained: Written Consent given by: Patient Risks, benefits, and alternatives were discussed: yes [place] protocol: Procedure explained and questions answered to patient or proxy's satisfaction: yes Relevant documents present and verified: yes Imaging studies available: yes Required blood products, implants, devices, and special equipment available: yes Site/side marked: yes Immediately prior to procedure, a time out was called: yes Patient identity confirmed: Verbally with patient and arm band Indications: Intended level of sedation: Moderate Pre-sedation assessment: NPO status caution: appropriate NPO status ASA classification: class 3 - patient with severe systemic disease Mallampati score: III - soft palate, base of uvula visible Pre-sedation assessment completed: 11/29/2024 10:20 AM Immediate pre-procedure details: Reassessment: Patient reassessed immediately prior to procedure and felt to be medically appropriate to proceed as planned. Reviewed: NPO status Verified: bag valve mask available, emergency equipment available, intubation equipment available, IV patency confirmed, oxygen available, reversal medications available and suction available Procedure details (see MAR for exact dosages): Preoxygenation: Room air Sedation: Midazolam (2mg IV @ [address] Al/YU) Analgesia: Fentanyl (50mcg IV @ [address] Al/YU) Intra-procedure monitoring: Frequent vital sign checks, blood pressure monitoring and continuous pulse oximetry Intra-procedure management: Supplemental oxygen (2L NC) Post-procedure details: Patient is stable for discharge or admission: yes (ok to dc home per Dr. Al at 1105) Procedure completion: Tolerated well, no immediate complications us Gerald Al MD IN CLINIC/BEDSIDE ORDERABLES Fi nal Result * POC Imaging (11/29/2024) Anatomical Region Laterality Modality Pelvis Other 11/29/2024 us External Provider IMG POINT OF CARE ULTRASOUND F inal Result from Last [address] [place] [id number] [facility] Care Teams Trimmer Machine Operator Relationship Specialty Start Date End Date Radha Gutierrez MD [address] [place] [address] PCP - General 01/10/25
--- OUTSIDE RECORDS SUMMARY | 2025-02-27 13:19 | XMS_ITS | Encounter Summary ---
Author Organization Healthcare Address [address] [place] [address] Care Team Providers Care Physician Locums Urgent Care Name Role Phone Unavailable Primary Care Provider Unavailabl e Encounter Details Date Type Department Care Team (Latest Contact Info) Description 01/02/2025 Travel Social History Tobacco Use Types Packs/Day [...]
[2025-02-27 13:27] LABS: Hematocrit 37.6 % (37.0-47.0); Hemoglobin 12.3 g/dL (12.2-16.2); Immature Granulocytes % 0.4 %; Mean Corpuscular HGB Conc 32.7 g/dL (31.8-35.4); Mean Corpuscular Hemoglobin 28.5 pg (27.0-31.2); Mean Corpuscular Volume 87.0 fl (81-99); Nucleated Red Blood Cells % 0 %; Platelet Count 246 K/mm3 (142-424); Red Blood Count 4.32 M/mm3 (4.20-5.40); Red Cell Distribution Width-SD 44.5 fL; White Blood Count 6.7 K/mm3 (4.8-10.8)
[2025-02-27 13:59] LABS: Albumin Level 4.0 g/dl (3.5-5.0); Chloride 108 mmol/L (98-107); Potassium 3.9 mmoL/L (3.5-5.1); Sodium 138 mmol/L (136-145)
[2025-02-27 14:02] LABS: Alanine Aminotransferase 28 U/L (12-78); Albumin/Globulin Ratio 1.6 (1.1-1.8); Alkaline Phosphatase 70 U/L (38-126); Anion Gap 7.9 mEq/L (5-15); Aspartate Amino Transferase 28 U/L (14-36); Bilirubin,Total 0.4 mg/dl (0.2-1.3); Blood Urea Nitrogen 10 mg/dl (7-17); Calcium 9.6 mg/dl (8.4-10.2); Carbon Dioxide 26 mmol/L (22.0-30.0); Cholesterol 144 mg/dl (140-200); Creatinine,Serum 0.70 mg/dl (0.52-1.04); Estimated Glomerular Filt Rate 88 ml/min (>60); GFR (African American) 106 ML/MIN (>60); Globulin 2.5 g/dL (1.3-3.2); Glucose 115 mg/dl (74-100); Total Protein,Serum 6.5 g/dl (6.3-8.2); Triglycerides 123 mg/dl (30-150)
[2025-02-27 14:03] LABS: HDL Cholesterol 51 mg/dl (40-60)
[2025-02-27 14:20] LABS: Free T4 (Free Thyroxine) 0.96 ng/dl (0.78-2.19)
[2025-02-27 14:34] LABS: Thyroid Stimulating Hormone 0.99 uIU/mL (0.465-4.68)
[2025-02-27 18:00] LABS: Iron 63 ug/dL (37-170)
[2025-02-27 18:11] LABS: Total Iron Binding Capacity 354 ug/dL (265-497)
[2025-02-27 18:36] LABS: Ferritin 11.4 ng/ml (11.1-264)
[2025-02-28 13:43] LABS: Triiodothyronine (T3) Free 3.3 pg/mL (2.0-4.4)
== END 2025-02-27 23:59 | disposition home or self-care (01) ==
LOC: LAB 13:08
PROVIDERS: Internal Medicine Medical Oncology; PCP Internal Medicine; Visit Provider Internal Medicine
DX: D64.9 Anemia, unspecified (principal); I10 Essential (primary) hypertension; E04.1 Nontoxic single thyroid nodule
CPT/HCPCS: 36415; 80053; 80061; 82728; 83540; 83550; 84439; 84443; 84481; 85025

== ENCOUNTER 2025-04-21 12:54 | Outpatient (CLI) | payer BC, SELFPAY ==
--- NOTE | 2025-04-21 12:56 | US_ITS ---
FINAL REPORT TECHNIQUE: Sonographic images of the thyroid gland were obtained in the longitudinal and transverse planes. CLINICAL HISTORY: THY NODULE FINDINGS: The right lobe measures 1.9 x 5.3 x 1.8 cm. There is a mixed cystic and solid 11 mm nodule consistent with TR 3. The left lobe measures 5.0 x 6.2 x 3.3 cm. There is a mixed cystic and solid 55 mm nodule consistent with TR 3. The isthmus measures 8 mm. Mildly enlarged. IMPRESSION: Bilateral thyroid nodules consistent with TR 3. Nodule on the left should be biopsied. Reviewed, Interpreted and Dictated by Caryl Garner MD Transcribed by Hallie Cabello Authenticated and [facility]
--- OUTSIDE RECORDS SUMMARY | 2025-04-21 13:00 | XMS_ITS | Clinical Summary ---
Author Organization Healthcare Address [address] [place] [address] Care Team Providers Care Presser And Shaper Knitted Goods Name Role Phone Radha Gutierrez MD Primary Care Provider +1- [phone] Allergies No known active allergies Medications cyanocobalamin [...] 5 Active cholecalciferol (Vitamin D-3) 250 MCG (54038 UT) capsule Take 1 capsule by mouth daily. Active aspirin 81 MG EC tablet Take 1 tablet by mouth daily. Active Blood Pressure Monitoring (Blood Pressure Digital Soln) kit 5 Active Hospital, Clinic, or Other Facility Administered Medication Ordered Dose Route Frequency Start Date End Date Status sodium chloride 0.9 % flush 3 mLIndications:Arthritis of both knees 3 mL IV As needed 11/29/2024 Active Active Problems Problem Noted Date Diagnosed Date Class III obesity with body mass index (BMI) of 40.0 or higher 01/06/2025 Social History Tobacco Use Types Packs/Day Years [...] 2022 [facility]-Zoster Vaccines (1 of 2) 2022 [id number]-70 Vaccine ( season) 2025 08/24/2021, 01/01/2021, 12/04/2020 [...] on patient's age to complete [place] [id number] [facility] Care Teams Presser And Shaper Knitted Goods Relationship Specialty Start Date End Date Radha Gutierrez MD [address] [place] [address] PCP - General 01/10/25
== END 2025-04-21 23:59 | disposition home or self-care (01) ==
PROVIDERS: PCP Internal Medicine; Visit Provider Internal Medicine
DX: E04.1 Nontoxic single thyroid nodule (principal)
CPT/HCPCS: 76536

== ENCOUNTER 2025-04-22 11:15 | Outpatient (CLI) | payer BC, SELFPAY ==
--- OUTSIDE RECORDS SUMMARY | 2025-04-22 11:17 | XMS_ITS | Data Portability ---
Author Organization [facility] Address [address] [place] [address] Assessment No assessment recorded. Plan of Treatment Reminders Order Date Submit Date Provider Last Modified By Organization Details Last Modified Time Details Appointments None recorded. Lab rapid SARS CoV + SARS CoV 2 Ag, QL IA, respiratory specimen 2021 [facility], [address] [place] [address], [id number], 13:25:43 rapid flu (A+B) 2021 [facility], [address] [place] [address], [phone], 13:25:21 rapid strep group A, throat 2021 [facility], [address] [place] [address], [phone], 12:02:11 Referral None recorded. Procedures None recorded. Surgeries None recorded. Imaging None recorded. Medication Orders Zithromax Z-Rob 250 mg tablet 2021 [facility], [address] [place], [address], 12:05:09 Patient TargetsNo targets recorded. Patient InstructionsNo instructions recorded. Reason for Referral None Reported. Results Created Date Observation Date Name Description Value Unit Range Abnormal Flag Note LastModifiedBy Organization Detail LastModifiedTime 05/23/20 22 05/23/2022 rapid flu (A+B) Flu negati ve Not Available [address], [address], 05/23/2022 11:31:36 05/23/20 22 05/23/2022 rapid flu (A+B) Type Both A & B Not Available [address], [address], 05/23/2022 11:31:36 05/23/20 22 05/23/2022 rapid SARS CoV + SARS CoV 2 Ag, QL IA, respi rator y speci men SARS CoV antigen Negati ve Not Available [address], [address], 05/23/2022 11:31:30 05/23/20 22 05/23/2022 rapid strep group A, throa t Strep negati ve Not Available [address], [address], 05/23/2022 11:26:45 05/23/20 22 05/23/2022 rapid strep group A, throa t Culture No Not Available [address], [address], 05/23/2022 11:26:45 Result Notes None recorded. Problems Name Problem SNOMED Code Status Onset Date Resolution Date Notes Provider Name and Address Organization Details Recorded Time Hypertensive disorder 87346230 Active SYMONE Saldaña - [facility] 2 11:28:56 Osteoarthriti s 426564232 Active SYMONE Saldaña - [facility] 11:29:06 Problem Notes None recorded. Procedures Surgical History Date Name Laterality Status Provider Name and Address Organization Details Recorded Time 8 Colposcopy completed Sosa ASHBY - [facility] 05/23/2022 11:28:23 3 Caesarean Section completed Sosa ASHBY - [facility] 05/23/2022 11:28:24 2 Cardiac Surgery completed Sosa ASHBY - [facility] 05/23/2022 11:28:24 Imaging Results None recorded. Procedure Notes None recorded. Medical Equipment None Reported. Allergies No known drug allergies Medications Name Sig Start Date Stop Date Status Note LastModified by Organization Details LastModified Time blood pressu solution kit active Not Available Not Available Not Available azithromycin 250 mg tablet TAKE 2 TABLETS BY MOUTH THE FIRST DAYS DOSE THEN TAKE 1 TABLET EACH DAY FOR 4 MORE DAYS. active Not Available Not Available No t Available losartan 25 mg tablet TAKE 1 TABLET BY MOUTH DAILY active Not Available Not Available No t Available ID NOW COVID-19 Test Kit TEST DIRECTED TODAY active Not Available Not Available No t Available Vitals Date Recorded Body weight Body temperature Heart rate Oxygen saturation Oxygen saturation in Arterial blood by Pulse oximetry Respiratory rate Pain severity - 0-10 verbal numeric rating [Score] - Reported Systolic And Diastolic Provider Name and Address Organization Details Last Updated DateTime 2 525499. 38 g 97.8 [degF] 77 /min 95 % 95 % 18 /min 5 132/80 mm[Hg] Sosa ASHBY - [facility] 2 11:27:37 Social History Question Answer Notes LastModified by Organizat ion Details LastModified Time Tobacco Smoking Status Former Smoker SYMONE Saldaña - [facility] 05/23/2022 11:28:24 Do You Have An Advance Directive? No Information not available 05/23/2022 How Many Years Have You Consumed Alcohol? 30 Information not available 05/23/2022 Is Blood Transfusion Acceptable In An Emergency? Yes Information not available 05/23/2022 What Is Your Level Of Caffeine Consumption? Occasional Information not available 05/23/2022 How Much Tobacco Do You Chew? None Information not available 05/23/2022 Are You Deaf Or Do You Have Serious Difficulty Hearing? No Information not available 05/23/2022 What Type Of Diet Are You Following? CARBOHYDRATE Information not available 05/23/2022 Which Illicit Or Recreational Drugs Have You Used? None Information not available 05/23/2022 What Is The Highest Grade Or Level Of School You Have Completed Or The Highest Degree You Have Received? BL68842-6 Information not available 05/23/2022 When Did You Quit Smoking? 16+yearssincelas tcigarette Information not available 05/23/2022 How Many Years Have You Used Illicit Or Recreational Drugs? 0 Information not available 05/23/2022 What Was The Date Of Your Most Recent Tobacco Screening? 05/23/2022 Information not available 05/23/2022 How Many Children Do You Have? 3 Information not available 05/23/2022 Do You Use Protection During Sex? Usually Information not available 05/23/2022 Do You Use Protection Against STDs? Usually Information not available 05/23/2022 What Is Your Relationship Status? Information not available 05/23/2022 Do You Use Your Seat Belt Or Car Seat Routinely? Yes Information not available 05/23/2022 Are You Sexually Active? No Information not available 05/23/2022 Do You Have Smoke And Carbon Monoxide Detectors In Your Home? Yes Information not available 05/23/2022 At What Age Did You Start Smoking Tobacco? 19 Information not available 05/23/2022 Are You Passively Exposed To Smoke? No Information not available 05/23/2022 Do You Use Sunscreen Routinely? Yes Information not available 05/23/2022 Which Type Of Protection Is Used? Condoms Information not available 05/23/2022 Sex: Female Functional Status Question Answer Note LastModified by Organizat ion Details LastModified Time Do you use any illicit or recreational drugs? No Information not available 05/23/2022 What is your level of alcohol consumption? Occasional Information not available 05/23/2022 Do you or have you ever used smokeless tobacco? Never used smokeless tobacco Information not available 05/23/2022 Are you currently employed? Yes Information not available 05/23/2022 Are you able to care for yourself independently? 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 Never used electronic cigarettes Information not available 05/23/2022 What is your exercise level? Occasional Information not available 05/23/2022 Mental Status Question Answer Note LastModified by Organization D etails LastModified Time Do you feel stressed (tense, restless, nervous, or anxious, or unable to sleep at night)? [id number] Information not available 05/23/2022 Family History Relationship Description Onset Age of this Age Resolved Age Notes LastModified by Organization Details LastModified Time Mother Malignant neoplasm of cervix uteri cbuckler Not available 10/2021 11:28:23 Father Diabetes mellitus cbuckler Not available 2021 11:28:23 Father Hypertensive disorder cbuckler Not available 2021 11:28:23 Father Malignant neoplastic disease cbuckler Not available 2021 11:28:23 Sister Disorder of thyroid gland cbuckler Not available 2021 11:28:23 Paternal Grandmother Arthritis cbuckler Not available 10/2021 11:28:23 Paternal Grandmother Osteoporosis cbuckler Not available 05/23/2022 11:28:23 Medical History Condition Response Heart Problems Y Fracture Y Arthritis Y Neuropathy Y Headaches Y Thyroid Problems Y Hypertension Y Diverticulitis Y Gynecological History Statement/Question Response Abnormal Pap N Flow Moderate Date of LMP 04/28/2022 STIs/STDs N Colposcopy 06/19/2017 HPV Vaccine N Duration of Flow (days) 7 Current Control Method None Age at Menarche 13 Age at First Child 32 Frequency of Cycle (Q days) 30 Sexually Active? N Menses Monthly Y Hormone Replacement Therapy N Obstetrics History GPAL:G 0 P 0 0 0 0 Past Encounters Encounter ID Performer Location Encounter Start Date Encounter Closed Date Diagnosis/Indication Diagnosis SNOMED-CT Code Diagnosis ICD10 Code Diagnosis IMO Codes Diagnosis Note [id number] [facility] [address] [place] [address] 12/01/2008 00:00:00 [id number] Sury Wei APRN [address] [address] 05/23/2022 11:17:46 05/23/2022 12:03:32 Pharyngitis 301034271 J02.9 Streptococ norris sore throat 48373839 J02.0 Health Concerns Section Related Observation LastModified by Organization Detai ls LastModified Time None Recorded Concern Status LastModified by Organization Details LastModified Time None Recorded Advance Directives Directive N: Payers Insurance Date Sequence Insurance Name Policy Number Policy Nava Covered Member ID Nava Member ID Guarantor Name 05/23/2022 1 [id number] ([id number]) [id number] Neelam Scott [id number] Neelam Chavez Notes Date Note Type Note Provider Name and Address Organization Details Recorded Time 05/23/2022 text/html ROS as noted in the HPI 51 yr old female with fatigue and sore throat. Her children have been sick over the last few weeks with flu and strep. Sury Wei, [employer]OURCE [employer] [address], [place], [address], [place] - [facility] 05/23/2022 12:03:34 OBGyn Episode No OBEpisode recorded.
[2025-04-22 11:44] LABS: Hematocrit 40.6 % (37.0-47.0); Hemoglobin 13.1 g/dL (12.2-16.2); Immature Granulocytes % 0.5 %; Mean Corpuscular HGB Conc 32.3 g/dL (31.8-35.4); Mean Corpuscular Hemoglobin 28.1 pg (27.0-31.2); Mean Corpuscular Volume 86.9 fl (81-99); Nucleated Red Blood Cells % 0 %; Platelet Count 245 K/mm3 (142-424); Red Blood Count 4.67 M/mm3 (4.20-5.40); Red Cell Distribution Width-SD 42.8 fL; White Blood Count 8.1 K/mm3 (4.8-10.8)
[2025-04-22 12:14] LABS: Iron 114 ug/dL (37-170)
[2025-04-22 12:23] LABS: Total Iron Binding Capacity 399 ug/dL (265-497)
[2025-04-22 12:51] LABS: Ferritin 8.49 ng/ml (11.1-264)
== END 2025-04-22 23:59 | disposition home or self-care (01) ==
LOC: LAB 11:15
PROVIDERS: PCP Internal Medicine; Visit Provider Internal Medicine Medical Oncology
DX: D64.9 Anemia, unspecified (principal)
CPT/HCPCS: 36415; 82728; 83540; 83550; 85025